=== PATIENT | female | born 1990 | race Two or more races ===

== ENCOUNTER 2023-04-28 13:07 | Emergency (ER) | payer MEDICAID, OTHER ==
[~2023-04-28] VITALS: Ht 157.5 cm; Wt 103.5 kg
[2023-04-28 13:39] LABS: Basophils # (auto) 0.1 10 ^3/uL (0-0.2); Basophils % (auto) 0.8 % (0.0-2.0); Eosinophils # (auto) 0 10 ^3/uL (0-0.8); Eosinophils % (auto) 0.6 % (0.0-7.0); Hematocrit 39.3 % (36.0-46.0); Lymphocytes # (auto) 2.7 10 ^3/uL (0.4-5.4); Lymphocytes % (auto) 32.3 % (10.0-50.0); Mean Corpuscular Volume 87.8 fL (80.0-100.0); Monocytes # (auto) 0.8 10 ^3/uL (0-1.3); Monocytes % (auto) 9.2 % (0.0-12.0); Neutrophils # (auto) 4.8 10 ^3/uL (1.6-8.6); Neutrophils % (auto) 57.1 % (37.0-80.0); Red Blood Cells 4.47 10^6/uL (4.0-5.20); Red Cell Distribution Width 13.9 % (11.8-14.3); White Blood Cell 8.4 10^3/uL (4.4-10.8)
[2023-04-28 16:26] VITALS: BP 123/63; PULSE 74; RESP 19; TEMP 98.2; O2SAT 100
== END 2023-04-28 16:27 | disposition home or self-care (01) ==
LOC: ER 13:07
DX: O20.0 Threatened abortion (principal); R10.2 Pelvic and perineal pain; Z3A.00 Weeks of gestation of pregnancy not specified
CPT/HCPCS: 36415; 76801; 76817; 84702; 85025; 86900; 86901

== ENCOUNTER 2023-10-16 14:59 | Emergency (ER) | payer MEDICAID ==
[~2023-10-16] VITALS: Ht 160 cm; Wt 96.0 kg
[2023-10-16 15:10] VITALS: BP 118/59; PULSE 95; RESP 16; O2SAT 97
[2023-10-16] MEDS ORDERED: MECLIZINE HCL 25 MG TAB PO ONE (15:45)
[2023-10-16] MEDS ORDERED: SODIUM CHLORIDE 0.9% 1,000 ML IV ONE (15:45)
[2023-10-16 16:11] LABS: Urine Bacteria None Seen /hpf (None Seen)
[2023-10-16 16:16] LABS: Chloride 106 mmol/L (98-107); Potassium 3.9 mmol/L (3.5-5.1); Sodium 134 mmol/L (136-145)
[2023-10-16 16:17] LABS: Anion Gap 6 (5-15); Calcium 9.7 mg/dL (8.7-10.4); Carbon Dioxide 22 mmol/L (20-30)
[2023-10-16 16:22] LABS: BUN/Creatinine Ratio 8.7 (10.0-20.0); Blood Urea Nitrogen 6 mg/dL (9-23); Glucose 105 mg/dL (74-106)
[2023-10-16 16:28] LABS: Basophils # (auto) 0 10 ^3/uL (0-0.2); Basophils % (auto) 0.2 % (0.0-2.0); Eosinophils # (auto) 0 10 ^3/uL (0-0.8); Eosinophils % (auto) 0.4 % (0.0-7.0); Hematocrit 37.5 % (36.0-46.0); Hemoglobin 13.1 g/dL (12.2-16.2); Lymphocytes # (auto) 2.3 10 ^3/uL (0.4-5.4); Lymphocytes % (auto) 22.3 % (10.0-50.0); Mean Corpuscular Hemoglobin 30.4 pg (28.0-32.0); Mean Corpuscular Hgb Conc. 34.9 g/dL (32.0-36.0); Mean Corpuscular Volume 87.2 fL (80.0-100.0); Monocytes # (auto) 0.6 10 ^3/uL (0-1.3); Monocytes % (auto) 5.6 % (0.0-12.0); Neutrophils # (auto) 7.5 10 ^3/uL (1.6-8.6); Neutrophils % (auto) 71.5 % (37.0-80.0); Platelet Count (auto) 323 10^3/uL (140-450); Red Cell Distribution Width 14.2 % (11.8-14.3); White Blood Cell 10.4 10^3/uL (4.4-10.8)
[2023-10-16 16:39] LABS: Urine Blood Negative /uL (Negative); Urine Clarity Clear (Clear); Urine Color Light-Yellow (Yellow); Urine Protein, UAD Negative (Negative); Urine Specific Gravity 1.015 (1.001-1.035); Urine Urobilinogen Normal (Negative); Urine WBC 3 /hpf (0 - 5)
== END 2023-10-16 18:27 | disposition left against medical advice (07) ==
LOC: ER 14:59
DX: O26.892 Other specified pregnancy related conditions, second trimester (principal); R10.2 Pelvic and perineal pain; E86.0 Dehydration; R42 Dizziness and giddiness; Z3A.18 18 weeks gestation of pregnancy
CPT/HCPCS: 36415; 80048; 81001; 82962; 83735; 84702; 85025

== ENCOUNTER 2023-10-31 14:50 | Observation (INO) | payer MEDICAID ==
[~2023-10-31] VITALS: Ht 160 cm; Wt 97.1 kg
== END 2023-10-31 16:27 | disposition home or self-care (01) ==
LOC: LDRP 14:50 → UNDOADMOB 14:50 → LDRP 14:59 → UNDODISOB 16:27
PROVIDERS: ADMIT Obstetrics & Gynecology; ATTEND Obstetrics & Gynecology
DX: O99.342 Other mental disorders complicating pregnancy, second trimester (principal); F41.9 Anxiety disorder, unspecified; F32.A Depression, unspecified; F43.10 Post-traumatic stress disorder, unspecified; Z3A.20 20 weeks gestation of pregnancy; W18.39XA Other fall on same level, initial encounter; Y93.89 Activity, other specified; Y92.89 Other specified places as the place of occurrence of the external cause; Y99.8 Other external cause status
CPT/HCPCS: 59025; 76815; 81002; 94760; G0378

== ENCOUNTER 2024-03-08 12:05 | Inpatient (IN) | payer MEDICAID ==
[2024-03-08 13:16] LABS: Urine Bacteria None Seen /hpf (None Seen)
[2024-03-08 13:20] LABS: Basophils # (auto) 0 10 ^3/uL (0-0.2); Basophils % (auto) 0.3 % (0.0-2.0); Eosinophils # (auto) 0 10 ^3/uL (0-0.8); Eosinophils % (auto) 0.3 % (0.0-7.0); Hematocrit 36.5 % (36.0-46.0); Hemoglobin 12.2 g/dL (12.2-16.2); Lymphocytes # (auto) 2.3 10 ^3/uL (0.4-5.4); Lymphocytes % (auto) 31.8 % (10.0-50.0); Mean Corpuscular Hemoglobin 30.8 pg (28.0-32.0); Mean Corpuscular Hgb Conc. 33.5 g/dL (32.0-36.0); Mean Corpuscular Volume 91.8 fL (80.0-100.0); Monocytes # (auto) 0.6 10 ^3/uL (0-1.3); Neutrophils # (auto) 4.4 10 ^3/uL (1.6-8.6); Neutrophils % (auto) 59.6 % (37.0-80.0); Platelet Count (auto) 190 10^3/uL (140-450); Red Blood Cells 3.98 10^6/uL (4.0-5.20); Red Cell Distribution Width 14.6 % (11.8-14.3); White Blood Cell 7.4 10^3/uL (4.4-10.8)
[2024-03-08 13:30] LABS: INR 0.9 (0.9-1.15); Partial Thromboplastin Time 28.5 SEC (24.5-34.5); Prothrombin Time 9.6 sec (9.3-11.8)
[2024-03-08 13:35] LABS: Albumin 3.7 g/dL (3.2-4.8); Anion Gap 6 (5-15); Aspartate Aminotransferase 15 U/L (13-40); BUN/Creatinine Ratio 12.3 (10.0-20.0); Bilirubin, Total 0.4 mg/dL (0.2-1.0); Calcium 9.2 mg/dL (8.7-10.4); Carbon Dioxide 22 mmol/L (20-31); Glucose 79 mg/dL (74-106); Total Protein 6.4 g/dL (5.7-8.2)
[2024-03-08 13:50] LABS: Benzodiazephine Screen, Urine Neg (NEGATIVE)
[2024-03-08 14:10] LABS: Amphetamine Screen, Urine Neg (NEGATIVE); Barbiturate Scree,Urine Neg (NEGATIVE); Cannabinoid Screen, Urine Neg (NEGATIVE); Cocaine Screen, Urine Neg (NEGATIVE); Opiate Scree,Urine Neg (NEGATIVE); Phencyclidine Screen, Urine Neg (NEGATIVE)
[2024-03-08 14:12] LABS: Blood Urea Nitrogen 8 mg/dL (9-23); Chloride 107 mmol/L (98-107); Sodium 135 mmol/L (136-145)
[2024-03-08 14:13] LABS: Alanine Aminotransferase < 9 U/L (7-40); Alkaline Phosphatase 141 U/L (46-116)
[2024-03-08 14:14] LABS: Urine Blood Negative /uL (Negative); Urine Clarity Clear (Clear); Urine Color Light-Yellow (Yellow); Urine Mucus FEW (None Seen); Urine Protein, UAD Negative (Negative); Urine Squamous Epithelial Cell FEW /hpf (<5); Urine Urobilinogen Normal (Negative); Urine WBC 2 /hpf (0 - 5); Urine pH 6.5 (5.0-9.0)
--- NOTE | 2024-03-08 18:38 | DVHDS2 ---
Physician Discharge Progress N Final Diagnosis: PREOP Operations or Procedures: Operations or Procedures NST,SONO Condition on Discharge: Good Disposition: Home Discharge Instructions: Diet: Consistent carbohydrate Activity: No Restrictions, As Tolerated Medications: NA Follow Up Care: Specialist: 3D Discharge Statement: "Patient was advised to return to the ER or call 911 if any headaches, dizziness, shortness of breath, chest pain, abdominal pain, bleeding, fevers, or worsening of medical condition. Patient was counseled about treatment plan, medications, possible side effects, patientverbalized understanding. All questions were answered to the best of my ability. This discharge took greater then 30 minutes in planning, reviewing documentation, counseling the patient, and discussing with other team members." SB JUNIOR DO Mar 08, 2024 18:38
[2024-03-10] MEDS ORDERED: LACTATED RINGER'S 1,000 ML IV SCH (07:30)
[2024-03-10] MEDS ORDERED: LACTATED RINGER'S 1,000 ML IV ONE (07:30)
[2024-03-10] MEDS ORDERED: ceFAZolin 2 GM/D5W50ml 50 ML IV ONE (07:30)
--- NOTE | 2024-03-10 09:15 | DVH ---
LIMITED OB ULTRASOUND > 14 WKS: HISTORY: Presentation TECHNIQUE: Multiple real-time grayscale images of the gravid uterus with duplex Doppler color flow an d M-mode spectral analysis. TRANSDUCER: Transabdominal FINDINGS/IMPRESSION: heart rate 127 beats per minute Cephalic Presentation
--- NOTE | 2024-03-10 12:25 | DVHDS2 ---
Physician Discharge Progress N Final Diagnosis: Cephalic presentation, primary section cancelled. Secondary Diagnosis: Encounter for surveillance Operations or Procedures: Operations or Procedures NST Limited OB US Commentary: Commentary Baby no longer breech at 39 wk, C/S cancelled NOT in labor Condition on Discharge: Stable Disposition: Home Discharge Instructions: Diet: Regular Activity: No Restrictions, As Tolerated Follow Up/Referral: N/A Medications: NA Follow Up Care: Discharge Statement: "Patient was advised to return to the ER or call 911 if any headaches, dizziness, shortness of breath, chest pain, abdominal pain, bleeding, fevers, or worsening of medical condition. Patient was counseled about treatment plan, medications, possible side effects, patientverbalized understanding. All questions were answered to the best of my ability. This discharge took greater then 30 minutes in planning, reviewing documentation, counseling the patient, and discussing with other team members." CEM DAWSON DO Mar 10, 2024 12:25
[2024-03-11 04:06] LABS: RPR Non Reactive (Non Reactive)
[2024-03-11 12:06] LABS: Treponema Pallidum Ab LC Non Reactive (Non Reactive)
== END 2024-03-10 09:16 | disposition home or self-care (01) | DRG 566 ==
LOC: LDRP 12:05 → UNDOADMOB 12:05 → EDSTATUS 16:20 → LDRP 03-10 07:15
PROVIDERS: ADMIT Obstetrics & Gynecology; ATTEND Obstetrics & Gynecology
DX: O26.893 Other specified pregnancy related conditions, third trimester (principal); Z3A.39 39 weeks gestation of pregnancy; Z79.899 Other long term (current) drug therapy
CPT/HCPCS: 36415; 59025; 76815; 80053; 80307; 81001; 81002; 85025; 85610; 85730; 86592; 86780; 86803; 86850; 86900; 86901; 94760; G0378

== ENCOUNTER 2024-03-14 09:45 | Inpatient (IN) | payer MEDICAID ==
[~2024-03-14] VITALS: Ht 165.1 cm; Wt 112.0 kg
--- NOTE | 2024-03-14 11:34 | DVH ---
LIMITED OB ULTRASOUND > 14 WKS: HISTORY: presentation. TECHNIQUE: Multiple real-time grayscale images of the gravid uterus with duplex Doppler color flow an d M-mode spectral analysis. COMPARISON: US OBSTERICAL LIMITED on DOS: 03/10/24, US OBSTERICAL LIMITED on DOS: 10/31/23 FINDINGS: IUP single live fetus in cephalic presentation. heart rate measures 126 beats per minute. PRESLEY m easures 16.1 cm. Placenta is posterior. IMPRESSION: IUP single live fetus cephalic presentation.
[2024-03-14 11:45] LABS: Fern Testing Negative
[2024-03-14] MEDS ORDERED: BUTORPHANOL TARTRATE 2 MG/1 ML VIAL IV PRN ×2 (11:45)
[2024-03-14] MEDS ORDERED: LIDOCAINE 2%HCL (LOCAL ANESTH.) INJ 20ML MDV IJ PRN (11:45)
[2024-03-14] MEDS ORDERED: LACT. RINGERS/OXYTOCIN 20UNITS 1,000 ML IV SCH (11:45)
--- NOTE | 2024-03-14 12:25 | DVHHP2 ---
OB CC & HPI Date Date of Admission: Mar 14, 2024 Patient Identification: : 3 Para: 1 EGA: 40.1 Chief Complaints: Reason for admission: induction of labor History of Present Complaints 33y IUP 40+ wk, presented w/ complaints of early labor. Cx 3cm dilated, irreg contractions. Membranes intact GBS positive. Desires induction of labor Past Medical History Cardiac: No pertinent Hx Pulmonary: No pertinent Hx Central Nervous System: No pertinent Hx GI: No pertinent Hx Hemotology/Oncology: No pertinent Hx Hepatobiliary: No pertinent Hx Psychiatric: No pertinent Hx Musculoskeletal: No pertinent Hx Rheumotologic: No pertinent Hx Infectious Disease: No peritnent Hx ENT: No pertinent Hx Renal/: No pertinent Hx Endocrine: No pertinent Hx Dermatology: No pertinent Hx Past Surgical History: No pertinent Hx OB History OB History Care: Good Care Ultrasounds: Normal mid trimester US Obstetrical Complications: None Medical Complications: None Allergies: Coded Allergies: NO KNOWN ALLERGIES (Unverified , 04/28/23) Home Meds No Active Prescriptions or Reported Meds Current Medications Current Medications Medications (Trade) Dose Ordered Sig/Jose Route PRN Reason Start Time Stop Time Status Last Admin Lactated Ringer's 1,000 ml @ 125 mls/hr Q8H IV 03/14/24 11:45 UNV Penicillin G Potassium [id number] units/Dextrose 50 ml @ 100 mls/hr Q4H IV 03/14/24 15:45 UNV Witch Chhaya (Tucks) 1 pad PRN PRN TOP PERINEAL AREA DISCOMFORT 03/14/24 11:45 UNV Sodium Lauryl Sulfate (Phisoderm) 240 ml PRN PRN TOP PERINEAL AREA DISCOMFORT 03/14/24 11:45 UNV Benzocaine (Dermoplast) 1 applic PRN PRN TOP PERINEAL AREA DISCOMFORT 03/14/24 11:45 UNV Butorphanol Tartrate (Stadol Injection) 1 mg Q4HPRN PRN IV MODERATE PAIN (4-6 PAIN SCALE) 03/14/24 11:45 UNV Butorphanol Tartrate (Stadol Injection) 2 mg Q4HPRN PRN IV SEVERE PAIN (7-10 PAIN SCALE) 03/14/24 11:45 UNV Lidocaine HCl (Xylocaine) 20 ml ONCE PRN IJ PERINEAL AREA DISCOMFORT 03/14/24 11:45 UNV Oxytocin 1,000 ml @ 6 ml/hr Q24H IV 03/14/24 11:45 UNV Family & Social History Family/Social History Rubella: immune RPR/VDRL: Negative GBS Status: Positive HBsAG: Negative Review of Systems Constitutional: No symptom reported Ears, Nose, & Throat: No symptom reported Eyes: No symptom reported Pulmonary/Respiratory: No symptom reported Cardiovascular: No symptom reported Gastrointestinal: No symptom reported Genitourinary: No symptom reported Musculoskeletal: No symptom reported Skin: No symptom reported Psychiatric: No symptom reported Endocrine: No symptom reported Hemotologic/Lymphatic: No symptom reported OB Admission Exam Physical Exam HEENT: NCAT Heart: Rhythm Normal Lungs: Clear Abdomen: Gravid Extremities: Normal Reflexes: Normal Pelvic Exam: RN exam 3/70/-3 VTX Membranes: Intact Heart Rate: 130's Care Home Variability: Average (6-25) Contractions on Admission: >10 Minutes Apart Intensity: Mild OB Plan Plan Admitting Diagnosis: Term IUP 40.1 wk, Early labor GBS Positive Plan: Expectant Management Other Plan: Admit for labor and delivery Pitocin augmentation Pen G For GBS prophylaxis Informed consent obtained for treatment CEM DAWSON DO Mar 14, 2024 12:25
[2024-03-14 12:35] LABS: Urine Bacteria None Seen /hpf (None Seen)
[2024-03-14 12:49] LABS: Basophils # (auto) 0 10 ^3/uL (0-0.2); Basophils % (auto) 0.2 % (0.0-2.0); Eosinophils # (auto) 0 10 ^3/uL (0-0.8); Eosinophils % (auto) 0.1 % (0.0-7.0); Hemoglobin 12.7 g/dL (12.2-16.2); Lymphocytes # (auto) 2.4 10 ^3/uL (0.4-5.4); Mean Corpuscular Hemoglobin 31.4 pg (28.0-32.0); Mean Corpuscular Hgb Conc. 34.4 g/dL (32.0-36.0); Monocytes # (auto) 0.6 10 ^3/uL (0-1.3); Monocytes % (auto) 6.2 % (0.0-12.0); Neutrophils # (auto) 6.8 10 ^3/uL (1.6-8.6); Neutrophils % (auto) 69.5 % (37.0-80.0); Nucleated Red Blood Cells % 0.1 %; Platelet Count (auto) 182 10^3/uL (140-450); Red Blood Cells 4.06 10^6/uL (4.0-5.20); Red Cell Distribution Width 14.3 % (11.8-14.3); White Blood Cell 9.8 10^3/uL (4.4-10.8)
[2024-03-14 12:53] LABS: Urine Blood Negative /uL (Negative); Urine Clarity Clear (Clear); Urine Color Light-Yellow (Yellow); Urine Protein, UAD Negative (Negative); Urine Specific Gravity 1.007 (1.001-1.035); Urine Squamous Epithelial Cell FEW /hpf (<5); Urine Urobilinogen Normal (Negative); Urine WBC 1 /HPF (0-5); Urine pH 6.5 (5.0-9.0)
[2024-03-14 12:55] LABS: Benzodiazephine Screen, Urine Neg (NEGATIVE)
[2024-03-14 12:56] LABS: Amphetamine Screen, Urine Neg (NEGATIVE); Barbiturate Scree,Urine Neg (NEGATIVE); Cannabinoid Screen, Urine Neg (NEGATIVE); Cocaine Screen, Urine Neg (NEGATIVE); Opiate Scree,Urine Neg (NEGATIVE); Phencyclidine Screen, Urine Neg (NEGATIVE)
[2024-03-14 12:59] LABS: Alanine Aminotransferase 13 U/L (7-40); Albumin 3.9 g/dL (3.2-4.8); Anion Gap 6 (5-15); Aspartate Aminotransferase 22 U/L (13-40); BUN/Creatinine Ratio 13.9 (10.0-20.0); Bilirubin, Total 0.3 mg/dL (0.2-1.0); Blood Urea Nitrogen 11 mg/dL (9-23); Calcium 9.3 mg/dL (8.7-10.4); Carbon Dioxide 22 mmol/L (20-31); Chloride 106 mmol/L (98-107); Glucose 104 mg/dL (74-106); Potassium 3.8 mmol/L (3.5-5.1)
[2024-03-14 13:00] LABS: Total Protein 6.6 g/dL (5.7-8.2)
[2024-03-14 13:03] LABS: Alkaline Phosphatase 165 U/L (46-116); Sodium 134 mmol/L (136-145)
[2024-03-14 13:13] LABS: INR 0.9 (0.9-1.15); Partial Thromboplastin Time 28.8 SEC (24.5-34.5); Prothrombin Time 9.6 sec (9.3-11.8)
[2024-03-14] MEDS: DERMOPLAST 60ML BOTTLE TOP PRN (15:08)
[2024-03-14] MEDS: PHISODERM TOP SOLN 240ML BTL TOP PRN (15:08)
[2024-03-14] MEDS: WITCH HAZEL-GLYCERIN PAD TOP PRN (15:08)
[2024-03-14] MEDS: PENICILLIN G POT 5MIL/D5 50ML 50 ML IV ONE (15:08)
[2024-03-14] MEDS ORDERED: PENICILLIN G POTASSIUM 2,500,000 UNITS in D5W 5% 50 ML IV SCH (15:45)
[2024-03-14] MEDS ORDERED: ePHEDrine SULFATE 50 MG/ML AMP IV ONE ×2 (16:45→21:45)
[2024-03-14] MEDS ORDERED: NALOXONE HCL 0.4 MG/ML VIAL IV ONE ×2 (16:45→21:45)
--- NOTE | 2024-03-14 18:10 | DVHPN2 ---
OB Labor Progress Note Date and Time Seen Date Seen: Mar 14, 2024 Time Seen: 17:10 Subjective Patient reports: No new complaints Monitoring Method Monitoring Method: Internal Heart Rate Heart Rate Baseline: 120 Heart Rate Variability: Moderate Presence of FHR Accelerations: Yes Presence of FHR Decelerations: Yes Heart Rate Type of Decel: Variable Decelerations (Intermittent, mild) Contractions Contractions Frequency: Other (3-4/10) Contractions Intensity: Moderate Contractions Resting Tone: Relaxed Membranes Membranes: Ruptured Amniotic Fluid Color: [employer] Meconium Vaginal Exam Vaginal Exam Dilation: 4 Vaginal Exam Effacement: 60 Vaginal Exam Station: -3 Vaginal Exam Presentation: VTX Vaginal Exam Show: Small Medications Medications - Pitocin: No Medication - Epidural: No Lab Results Lab Results Current Medications Medications (Trade) Dose Ordered Sig/Jose Start Time Stop Time Status Last Admin Dose Admin Lactated Ringer's 1,000 ml @ 125 mls/hr Q8H 03/14/24 11:45 Penicillin G Potassium 50 ml @ 100 mls/hr ONCE ONCE 03/14/24 11:45 03/14/24 13:26 DC 03/14/24 15:08 100 MLS/HR Penicillin G Potassium [id number] units/Dextrose 50 ml @ 100 mls/hr Q4H 03/14/24 15:45 Witch Chhaya (Tucks) 1 pad PRN PRN 03/14/24 11:45 03/14/24 15:08 1 PAD Sodium Lauryl Sulfate (Phisoderm) 240 ml PRN PRN 03/14/24 11:45 03/14/24 15:08 240 ML Benzocaine (Dermoplast) 1 applic PRN PRN 03/14/24 11:45 03/14/24 15:08 1 APPLIC Butorphanol Tartrate (Stadol Injection) 1 mg Q4HPRN PRN 03/14/24 11:45 Butorphanol Tartrate (Stadol Injection) 2 mg Q4HPRN PRN 03/14/24 11:45 Lidocaine HCl (Xylocaine) 20 ml ONCE PRN 03/14/24 11:45 Oxytocin 1,000 ml @ 6 ml/hr Q24H 03/14/24 11:45 Oxytocin 500 ml @ 999 mls/hr Q31M ONCE 03/14/24 11:45 03/14/24 13:26 DC Oxytocin 500 ml @ 125 mls/hr Q4H ONCE 03/14/24 12:15 03/14/24 16:14 DC Naloxone HCl (Narcan) 0.2 mg PRN ONCE 03/14/24 16:45 03/14/24 16:50 DC Ephedrine Sulfate (ePHEDrine SULFATE) 10 mg PRN ONCE 03/14/24 16:45 03/14/24 16:50 DC Laboratory Tests Test 03/14/24 12:05 03/14/24 11:40 03/14/24 10:30 Range/Units White Blood Count 9.8 # 4.4-10.8 10^3/uL Red Blood Count 4.06 4.0-5.20 10^6/uL Hemoglobin 12.7 12.2-16.2 g/dL Hematocrit 37.0 36.0-46.0 % Mean Corpuscular Volume 91.0 80.0-100.0 fL Mean Corpuscular Hemoglobin 31.4 28.0-32.0 pg Mean Corpuscular Hemoglobin Concent 34.4 32.0-36.0 g/dL Red Cell Distribution Width 14.3 11.8-14.3 % Platelet Count 182 140-450 10^3/uL Mean Platelet Volume 9.2 6.9-10.8 fL Neutrophils (%) (Auto) 69.5 37.0-80.0 % Lymphocytes (%) (Auto) 24.0 10.0-50.0 % Monocytes (%) (Auto) 6.2 0.0-12.0 % Eosinophils (%) (Auto) 0.1 0.0-7.0 % Basophils (%) (Auto) 0.2 0.0-2.0 % Neutrophils # (Auto) 6.8 1.6-8.6 10 ^3/uL Lymphocytes # (Auto) 2.4 0.4-5.4 10 ^3/uL Monocytes # (Auto) 0.6 0-1.3 10 ^3/uL Eosinophils # (Auto) 0 0-0.8 10 ^3/uL Basophils # (Auto) 0 0-0.2 10 ^3/uL Nucleated Red Blood Cells 0.1 % Prothrombin Time 9.6 9.3-11.8 sec Prothrombin Time INR 0.90 0.9-1.15 Activated Partial Thromboplast Time 28.8 24.5-34.5 SEC Sodium Level 134 L 136-145 mmol/L Potassium Level 3.8 3.5-5.1 mmol/L Chloride Level 106 98-107 mmol/L Carbon Dioxide Level 22 20-31 mmol/L Anion Gap 6 5-15 Blood Urea Nitrogen 11 9-23 mg/dL Creatinine 0.79 0.550-1.02 mg/dL Glomerular Filtration Rate Calc 101 >90 mL/min BUN/Creatinine Ratio 13.9 10.0-20.0 Serum Glucose 104 74-106 mg/dL Calcium Level 9.3 8.7-10.4 mg/dL Total Bilirubin 0.3 0.2-1.0 mg/dL Aspartate Amino Transferase (AST) 22 13-40 U/L Alanine Aminotransferase (ALT) 13 7-40 U/L Alkaline Phosphatase 165 H 46-116 U/L Total Protein 6.6 5.7-8.2 g/dL Albumin 3.9 3.2-4.8 g/dL Urine Color Light-yellow Yellow Urine Clarity Clear Clear Urine pH 6.5 5.0-9.0 Urine Specific [place] 1.007 1.001-1.035 Urine Protein Negative Negative Urine Ketones Negative Negative Urine Blood Negative Negative /uL Urine Nitrite Negative Negative Urine Bilirubin Negative Negative Urine Urobilinogen Normal Negative mg/dL Urine Leukocyte Esterase Negative Negative /uL Urine RBC 4 0 - 4 /hpf Urine Microscopic WBC 1 0-5 /HPF Urine Squamous Epithelial Cells Few <5 /hpf Urine Bacteria None seen None Seen /hpf Urine Glucose Normal Normal mg/dL Urine Opiates Screen Neg NEGATIVE Urine Fentanyl Screen Neg NEGATIVE Urine Barbiturates Screen Neg NEGATIVE Urine Phencyclidine Screen Neg NEGATIVE Urine Amphetamines Screen Neg NEGATIVE Urine Benzodiazepines Screen Neg NEGATIVE Urine Cocaine Screen Neg NEGATIVE Urine Cannabinoids Screen Neg NEGATIVE Amniotic Fluid Ferning Test Negative Placental [id number] Negative Assessment Assessment Term IUP 40.1 wk, early labor GBS+ s/p Amniotomy Plan Plan continue labor mgmt IUPC/FSE placed Pitocin augmentation ordered as needed to attain adequate labor >= 200 MVU\ Epidural discussed, pt will consider. Plan discussed with: Patient CEM DAWSON Mar 14, 2024 18:10
[2024-03-14] MEDS: ROPIVACAINE HCL 200 ML ONE ×2 (19:21→22:04)
[2024-03-14] MEDS ORDERED: ONDANSETRON HCL 4 MG/2 ML VIAL IV PRN (19:45)
[2024-03-14] MEDS: PENICILLIN G POTASSIUM 2,500,000 UNITS in D5W 5% 50 ML IV SCH (20:15)
[2024-03-14] MEDS: LACTATED RINGER'S 1,000 ML IV SCH (20:31)
[2024-03-14] MEDS ORDERED: fentaNYL CITRATE 100 MCG/2 ML VL IV ONE (21:45)
--- NOTE | 2024-03-14 23:08 | LDN2 ---
Labor and Delivery Note Date 03/14/24 Age 33 3 Para 2 AB 1 EGA 40.1 Diagnosis Term , delivered Vaginal Delivery: VTX Vacuum Assisted: No Placenta: Spontaneous Sex: Male Weight 1yo45ts Apgars 8/9 Amniotic Fluid: Meconium Stained, Thin Anesthesia Epidural Episiotomy: No Repaired with 2nd degree perineal lac repaired 3/0 Chromic EBL 150 mL Labs Blood Bank 03/14/24 12:05: Blood Type A POSITIVE Complications None CEM DAWSON DO Mar 14, 2024 23:08
[2024-03-15] MEDS: METHYLERGONOVINE MALEATE 0.2 MG/ML AMP IM ONE ×2 (00:17→00:30)
[2024-03-15] MEDS: LACT. RINGERS/OXYTOCIN 20UNITS 500 ML IV ONE ×2 (00:20→00:21)
[2024-03-15 00:47] LABS: Basophils # (auto) 0 10 ^3/uL (0-0.2); Basophils % (auto) 0.1 % (0.0-2.0); Eosinophils # (auto) 0 10 ^3/uL (0-0.8); Hematocrit 33.9 % (36.0-46.0); Hemoglobin 11.2 g/dL (12.2-16.2); Lymphocytes # (auto) 1.1 10 ^3/uL (0.4-5.4); Mean Corpuscular Hemoglobin 30.8 pg (28.0-32.0); Mean Corpuscular Hgb Conc. 33.1 g/dL (32.0-36.0); Mean Corpuscular Volume 93.2 fL (80.0-100.0); Monocytes # (auto) 1.1 10 ^3/uL (0-1.3); Monocytes % (auto) 5.3 % (0.0-12.0); Neutrophils % (auto) 89.6 % (37.0-80.0); Platelet Count (auto) 188 10^3/uL (140-450); Red Blood Cells 3.64 10^6/uL (4.0-5.20); Red Cell Distribution Width 14.7 % (11.8-14.3); White Blood Cell 21.3 10^3/uL (4.4-10.8)
[2024-03-15 03:00] VITALS: BP 107/58; PULSE 81; RESP 18; TEMP 98.1; O2SAT 97
[2024-03-15] MEDS: ONDANSETRON HCL 4 MG/2 ML VIAL ONE (03:28)
[2024-03-15] MEDS: LACTATED RINGER'S 1,000 ML IV ONE (03:29)
--- NOTE | 2024-03-15 05:11 | DVHPN2 ---
Progress Note Date Seen: Mar 15, 2024 Subjective PPD#1 s/p at Term 40+ wk Doing well. Lochia moderate, had large blood clots an hour after delivery relieved with uterine massage and IV Pitocin Denies SOB/Chest pain or dizziness vital signs Vital Sign Date Time Temp Pulse Resp B/P (MAP) Pulse Ox O2 Delivery O2 Flow Rate FiO2 03/15/24 03:00 98.1 81 18 107/58 (74) 97 98.1 medications Current Medications Medications Dose Ordered Sig/Jose Route Start Time Stop Time Status Last Admin Dose Admin Lactated Ringer's 1,000 ml @ 125 mls/hr Q8H IV 03/14/24 11:45 03/15/24 03:30 125 MLS/HR Witch Chhaya 1 pad PRN PRN TOP 03/14/24 11:45 03/14/24 15:08 1 PAD Sodium Lauryl Sulfate 240 ml PRN PRN TOP 03/14/24 11:45 03/14/24 15:08 240 ML Benzocaine 1 applic PRN PRN TOP 03/14/24 11:45 03/14/24 15:08 1 APPLIC Butorphanol Tartrate 1 mg Q4HPRN PRN IV 03/14/24 11:45 Cancel Butorphanol Tartrate 2 mg Q4HPRN PRN IV 03/14/24 11:45 Cancel Lidocaine HCl 20 ml ONCE PRN IJ 03/14/24 11:45 Cancel Oxytocin 1,000 ml @ 6 ml/hr Q24H IV 03/14/24 11:45 Cancel Ondansetron HCl 4 mg Q6HPRN PRN IV 03/14/24 19:45 laboratory and microbiology Laboratory Tests 03/15/24 00:32 03/14/24 12:05 Test 03/14/24 12:05 Range/Units Serum Glucose 104 74-106 mg/dL Objective O: AFVSS Chest: heart and lung sounds normal. Abd soft, non-tender, fundus firm, BS, no rebound or guarding, Ext Neg Homans, Non-tender, edema Lochia - minimal Labs Reviewed, leukocytosis WBC increased 21K Assessment/Plan PPD#1 s/p PPH, resolved Leukocytosis Plan: Observation, supportive care No evidence of endometritis or fever despite leukocytosis, likely physiologic increase in WBC - Repeat CBC before discharge Plan discussed with: Patient SAMIRCEM Mar 15, 2024 05:11
[2024-03-15 05:32] LABS: Basophils # (auto) 0 10 ^3/uL (0-0.2); Basophils % (auto) 0.1 % (0.0-2.0); Eosinophils # (auto) 0 10 ^3/uL (0-0.8); Hematocrit 29.1 % (36.0-46.0); Hemoglobin 9.8 g/dL (12.2-16.2); Lymphocytes # (auto) 1.5 10 ^3/uL (0.4-5.4); Lymphocytes % (auto) 7.8 % (10.0-50.0); Mean Corpuscular Hemoglobin 30.8 pg (28.0-32.0); Mean Corpuscular Hgb Conc. 33.8 g/dL (32.0-36.0); Mean Corpuscular Volume 91.2 fL (80.0-100.0); Monocytes # (auto) 1.1 10 ^3/uL (0-1.3); Monocytes % (auto) 5.5 % (0.0-12.0); Neutrophils # (auto) 16.6 10 ^3/uL (1.6-8.6); Neutrophils % (auto) 86.6 % (37.0-80.0); Platelet Count (auto) 163 10^3/uL (140-450); Red Blood Cells 3.19 10^6/uL (4.0-5.20); Red Cell Distribution Width 14.4 % (11.8-14.3); White Blood Cell 19.2 10^3/uL (4.4-10.8)
[2024-03-15 07:17] VITALS: BP 106/55; PULSE 77; RESP 18; TEMP 98.1; O2SAT 95
[2024-03-15] MEDS ORDERED: ONDANSETRON ODT 4 MG TAB PO PRN (07:30)
--- NOTE | 2024-03-15 09:52 | DVHINCON2 ---
Date of service: Mar 15, [address] Flip Meza Reason for Consultation Medication management and disposition. History of Present Illness Chief complaint: "I had a baby". History of present illness: This is a 33 year female who was seen for evaluation via telepsychiatry. Patient reported that she has been feeling depressed stating sometimes, I am on Zoloft". She reported that she had some trouble sleeping because of her her being . She reported that her energy level low, has trouble concentrating and her appetite is good. She denied feeling hopeless or worthless. She denied suicidal or homicidal ideation. She denied any thoughts of hurting her child. She denied any auditory or visual hallucination. She denied any paranoia. She reported feeling anxious sometimes. Past psychiatric history: Patient denied any inpatient psychiatric hospitalization. Patient reported that she has been treated for depression with Zoloft. Patient denied any suicide attempts but used indulged in self-injurious behavior. She reported that she has been treated for depression during her 1st . Past Medical History As per history and physical. Past Surgical History As per history and physical. Family History She denied any family history of any psychiatric illness. Social History Patient is and has two children. Patient is a homemaker. Patient is living with her family. Substance use: Denied Allergies: Coded Allergies: NO KNOWN ALLERGIES (Unverified , 04/28/23) Home Meds No Active Prescriptions or Reported Meds Current Medications Current Medications Medications (Trade) Dose Ordered Sig/Joes Route PRN Reason Start Time Stop Time Status Last Admin Lactated Ringer's 1,000 ml @ 125 mls/hr Q8H IV 03/14/24 11:45 03/15/24 03:30 Penicillin G Potassium [id number] units/Dextrose 50 ml @ 100 mls/hr Q4H IV 03/14/24 15:45 03/14/24 19:10 DC Witch Chhaya (Tucks) 1 pad PRN PRN TOP PERINEAL AREA DISCOMFORT 03/14/24 11:45 03/14/24 15:08 Sodium Lauryl Sulfate (Phisoderm) 240 ml PRN PRN TOP PERINEAL AREA DISCOMFORT 03/14/24 11:45 03/14/24 15:08 Benzocaine (Dermoplast) 1 applic PRN PRN TOP PERINEAL AREA DISCOMFORT 03/14/24 11:45 03/14/24 15:08 Butorphanol Tartrate (Stadol Injection) 1 mg Q4HPRN PRN IV MODERATE PAIN (4-6 PAIN SCALE) 03/14/24 11:45 Cancel Butorphanol Tartrate (Stadol Injection) 2 mg Q4HPRN PRN IV SEVERE PAIN (7-10 PAIN SCALE) 03/14/24 11:45 Cancel Lidocaine HCl (Xylocaine) 20 ml ONCE PRN IJ PERINEAL AREA DISCOMFORT 03/14/24 11:45 Cancel Oxytocin 1,000 ml @ 6 ml/hr Q24H IV 03/14/24 11:45 Cancel Penicillin G Potassium [id number] units/Dextrose 50 ml @ 100 mls/hr Q4H IV 03/14/24 23:00 03/15/24 00:25 DC 03/14/24 20:15 Ondansetron HCl (Zofran) 4 mg Q6HPRN PRN IV NAUSEA / VOMITING 03/14/24 19:45 Ibuprofen (Motrin Tablet) 600 mg Q6HP PRN PO MODERATE PAIN (4-6 PAIN SCALE) 03/15/24 07:30 Acetaminophen (Tylenol Tablet) 650 mg Q4HP PRN PO MILD PAIN (1-3 PAIN SCALE) 03/15/24 07:30 Ondansetron HCl (Zofran Po) 4 mg Q4HPRN PRN PO NAUSEA / VOMITING 03/15/24 07:30 Review of Systems Review of systems is negative except HPI. Vital Signs Vital Signs Date Time Temp Pulse Resp B/P (MAP) Pulse Ox O2 Delivery O2 Flow Rate FiO2 03/15/24 07:17 98.1 77 18 106/55 (72) 95 98.1 03/15/24 07:00 Room Air Physical Exam Mental status examination: This is a 33 year female who appears to be of her stated age. Her grooming is fair. Her eye contact is good. Her speech is regular in rate and rhythm. She describes mood as "it is good" and her affect is congruent full. She denied any suicidal or homicidal ideation. She denied any auditory or visual hallucination. Her thought process is linear and goal- directed. She is oriented to time, place and person. Her attention and concentration is intact. Her memory and language intact. Her judgment and insight is fair. Her impulse control is fair. Her fund of knowledge is intact. Labs/Diagnostic Data Labs Test 03/15/24 04:38 03/14/24 12:05 03/14/24 11:40 03/14/24 10:30 Range/Units White Blood Count 19.2 H 4.4-10.8 10^3/uL Red Blood Count 3.19 L 4.0-5.20 10^6/uL Hemoglobin 9.8 L 12.2-16.2 g/dL Hematocrit 29.1 #L 36.0-46.0 % Mean Corpuscular Volume 91.2 80.0-100.0 fL Mean Corpuscular Hemoglobin 30.8 28.0-32.0 pg Mean Corpuscular Hemoglobin Concent 33.8 32.0-36.0 g/dL Red Cell Distribution Width 14.4 H 11.8-14.3 % Platelet Count 163 140-450 10^3/uL Mean Platelet Volume 9.0 6.9-10.8 fL Neutrophils (%) (Auto) 86.6 H 37.0-80.0 % Lymphocytes (%) (Auto) 7.8 L 10.0-50.0 % Monocytes (%) (Auto) 5.5 0.0-12.0 % Eosinophils (%) (Auto) 0.0 0.0-7.0 % Basophils (%) (Auto) 0.1 0.0-2.0 % Neutrophils # (Auto) 16.6 H 1.6-8.6 10 ^3/uL Lymphocytes # (Auto) 1.5 0.4-5.4 10 ^3/uL Monocytes # (Auto) 1.1 0-1.3 10 ^3/uL Eosinophils # (Auto) 0 0-0.8 10 ^3/uL Basophils # (Auto) 0 0-0.2 10 ^3/uL Nucleated Red Blood Cells 0.0 % Prothrombin Time 9.6 9.3-11.8 sec Prothrombin Time INR 0.90 0.9-1.15 Activated Partial Thromboplast Time 28.8 24.5-34.5 SEC Sodium Level 134 L 136-145 mmol/L Potassium Level 3.8 3.5-5.1 mmol/L Chloride Level 106 98-107 mmol/L Carbon Dioxide Level 22 20-31 mmol/L Anion Gap 6 5-15 Blood Urea Nitrogen 11 9-23 mg/dL Creatinine 0.79 0.550-1.02 mg/dL Glomerular Filtration Rate Calc 101 >90 mL/min BUN/Creatinine Ratio 13.9 10.0-20.0 Serum Glucose 104 74-106 mg/dL Calcium Level 9.3 8.7-10.4 mg/dL Total Bilirubin 0.3 0.2-1.0 mg/dL Aspartate Amino Transferase (AST) 22 13-40 U/L Alanine Aminotransferase (ALT) 13 7-40 U/L Alkaline Phosphatase 165 H 46-116 U/L Total Protein 6.6 5.7-8.2 g/dL Albumin 3.9 3.2-4.8 g/dL Urine Color Light-yellow Yellow Urine Clarity Clear Clear Urine pH 6.5 5.0-9.0 Urine Specific [place] 1.007 1.001-1.035 Urine Protein Negative Negative Urine Ketones Negative Negative Urine Blood Negative Negative /uL Urine Nitrite Negative Negative Urine Bilirubin Negative Negative Urine Urobilinogen Normal Negative mg/dL Urine Leukocyte Esterase Negative Negative /uL Urine RBC 4 0 - 4 /hpf Urine Microscopic WBC 1 0-5 /HPF Urine Squamous Epithelial Cells Few <5 /hpf Urine Bacteria None seen None Seen /hpf Urine Glucose Normal Normal mg/dL Urine Opiates Screen Neg NEGATIVE Urine Fentanyl Screen Neg NEGATIVE Urine Barbiturates Screen Neg NEGATIVE Urine Phencyclidine Screen Neg NEGATIVE Urine Amphetamines Screen Neg NEGATIVE Urine Benzodiazepines Screen Neg NEGATIVE Urine Cocaine Screen Neg NEGATIVE Urine Cannabinoids Screen Neg NEGATIVE Amniotic Fluid Ferning Test Negative Placental [id number] Negative Assessment Patient with a diagnosis of major depressive disorder recurrent moderate and history of depression. Patient has been on Zoloft and was compliant with her medication during her . Patient is aware that all the medication are secreted in breast milk and she reported that she was taking medication after delivering her 1st baby. Patient is going to see her psychiatrist on 03/17/24. Plan/Recommendation Patient may resume her home medication of Zoloft. Patient does not meet the criteria for 5150 hold and is cleared for discharge from a psychiatric standpoint. Care was coordinated with the patient and her RN. Plan discussed with: Patient DAVID STEVEN MD Mar 15, 2024 09:52
[2024-03-15 11:00] VITALS: BP 120/56; PULSE 61; RESP 16; TEMP 99.1; O2SAT 100
[2024-03-15] MEDS: IBUPROFEN 600 MG TAB PO PRN (12:05)
[2024-03-15 15:00] VITALS: BP 115/61; PULSE 75; RESP 16; TEMP 98.9; O2SAT 97
[2024-03-15] MEDS: ACETAMINOPHEN 325 MG TAB PO PRN (18:44)
[2024-03-15 19:00] VITALS: BP 133/63; PULSE 86; RESP 18; TEMP 98.3; O2SAT 97
[2024-03-15 19:22] LABS: Basophils # (auto) 0 10 ^3/uL (0-0.2); Basophils % (auto) 0.1 % (0.0-2.0); Eosinophils # (auto) 0 10 ^3/uL (0-0.8); Eosinophils % (auto) 0.1 % (0.0-7.0); Hematocrit 26.4 % (36.0-46.0); Hemoglobin 8.9 g/dL (12.2-16.2); Lymphocytes # (auto) 3.9 10 ^3/uL (0.4-5.4); Lymphocytes % (auto) 23.3 % (10.0-50.0); Mean Corpuscular Hemoglobin 31.1 pg (28.0-32.0); Mean Corpuscular Hgb Conc. 33.9 g/dL (32.0-36.0); Mean Corpuscular Volume 91.7 fL (80.0-100.0); Monocytes # (auto) 1.1 10 ^3/uL (0-1.3); Monocytes % (auto) 6.7 % (0.0-12.0); Neutrophils # (auto) 11.7 10 ^3/uL (1.6-8.6); Neutrophils % (auto) 69.8 % (37.0-80.0); Platelet Count (auto) 176 10^3/uL (140-450); Red Blood Cells 2.87 10^6/uL (4.0-5.20); Red Cell Distribution Width 14.5 % (11.8-14.3); White Blood Cell 16.8 10^3/uL (4.4-10.8)
[2024-03-15] MEDS: DOCUSATE SOD 100 MG CAP PO SCH (21:47)
[2024-03-15 22:20] LABS: Basophils # (auto) 0 10 ^3/uL (0-0.2); Basophils % (auto) 0.1 % (0.0-2.0); Eosinophils # (auto) 0 10 ^3/uL (0-0.8); Eosinophils % (auto) 0.1 % (0.0-7.0); Hematocrit 26.8 % (36.0-46.0); Hemoglobin 8.9 g/dL (12.2-16.2); Lymphocytes # (auto) 3.9 10 ^3/uL (0.4-5.4); Lymphocytes % (auto) 25.2 % (10.0-50.0); Mean Corpuscular Hemoglobin 30.7 pg (28.0-32.0); Mean Corpuscular Hgb Conc. 33.4 g/dL (32.0-36.0); Mean Corpuscular Volume 92.2 fL (80.0-100.0); Monocytes # (auto) 1.1 10 ^3/uL (0-1.3); Monocytes % (auto) 6.9 % (0.0-12.0); Neutrophils # (auto) 10.4 10 ^3/uL (1.6-8.6); Neutrophils % (auto) 67.7 % (37.0-80.0); Nucleated Red Blood Cells % 0.1 %; Platelet Count (auto) 185 10^3/uL (140-450); Red Cell Distribution Width 14.8 % (11.8-14.3); White Blood Cell 15.3 10^3/uL (4.4-10.8)
[2024-03-15 23:00] VITALS: BP 120/77; PULSE 75; RESP 18; TEMP 98
[2024-03-16 03:00] VITALS: BP 107/58; PULSE 87; RESP 16; TEMP 98.2; O2SAT 97
[2024-03-16 07:07] VITALS: BP 108/54; PULSE 91; RESP 17; TEMP 98.5; O2SAT 98
--- NOTE | 2024-03-16 07:38 | DVHPN2 ---
Chief Complaints Patient reports: No new complaints, Feels better Nursing reports: No new complaints, No abdominal pain, No chest pain, No dizziness, No cough Objective Vitals Vital Signs Date Time Temp Pulse Resp B/P (MAP) Pulse Ox O2 Delivery O2 Flow Rate FiO2 03/16/24 07:07 98.5 91 17 108/54 (72) 98 98.5 03/15/24 19:00 Room Air Medications Current Medications Medications (Trade) Dose Ordered Sig/Jose Route PRN Reason Start Time Stop Time Status Last Admin Docusate Sodium (Colace Capsule) 200 mg HS PO 03/15/24 22:00 03/15/24 21:47 General: Normal Head/Eyes: Normal ENT: Normal Neck: Normal Lungs: Normal Cardiovascular: Normal Abdominal: Normal Musculoskeletal: Normal Extremities: Normal Skin: Normal Neurological: Normal Studies Laboratory Tests 03/15/24 21:53 03/14/24 12:05 Test 03/14/24 12:05 Range/Units Serum Glucose 104 74-106 mg/dL Ass/Plan Assessment Patient postop day 2 stable improved requesting discharge home. Plan Advanced care see discharge summary see discharge orders SANTO SIMMONS DO Mar 16, 2024 07:38
--- NOTE | 2024-03-16 07:42 | DVHDS2 ---
Obstetrics Discharge Summary Obstetrics Discharge Summary Date of Admission: Mar 14, 2024 Date of Discharge: Mar 16, 2024 Reason For Admission: Onset of Labor Procedures: NST Intrapartum Procedures: Spontaneous vaginal deliv Procedures: None Operative Complicat: None Discharge Diagnosis: Term -Delivered Discharge Information: Activity (Pelvic rest ), Diet (Routine), Medications (None), Instructions (Pelvic rest 6 weeks. Serious), Discharge to, Discarge date (March 16, 2024) SANTO SIMMONS DO Mar 16, 2024 07:42
[2024-03-16 10:50] VITALS: BP 110/64; PULSE 81; RESP 16; TEMP 98.4; O2SAT 98
== END 2024-03-16 12:35 | disposition home or self-care (01) | DRG 560 ==
LOC: LDRP 09:45 → OBSVTOIN 11:40
PROVIDERS: ADMIT Obstetrics & Gynecology; ATTEND Obstetrics & Gynecology
PROC: 10E0XZZ Delivery of Products of Conception, External Approach (ICD-10-PCS; principal; 2024-03-14)
PROC: 0KQM0ZZ Repair Perineum Muscle, Open Approach (ICD-10-PCS; 2024-03-14)
PROC: 3E0R3BZ Introduction of Anesthetic Agent into Spinal Canal, Percutaneous Approach (ICD-10-PCS; 2024-03-14)
PROC: 00HU33Z Insertion of Infusion Device into Spinal Canal, Percutaneous Approach (ICD-10-PCS; 2024-03-14)
DX: O48.0 Post-term pregnancy (principal); Z37.0 Single live birth; F33.1 Major depressive disorder, recurrent, moderate; O99.344 Other mental disorders complicating childbirth; O99.12 Other diseases of the blood and blood-forming organs and certain disorders involving the immune mechanism complicating childbirth; R71.0 Precipitous drop in hematocrit; O70.1 Second degree perineal laceration during delivery; O99.824 Streptococcus B carrier state complicating childbirth; O77.0 Labor and delivery complicated by meconium in amniotic fluid; D72.829 Elevated white blood cell count, unspecified; Z3A.40 40 weeks gestation of pregnancy
CPT/HCPCS: 36415; 59025; 59409; 62282; 76815; 80053; 80307; 81001; 81002; 84112; 85025; 85610; 85730; 86850; 86900; 86901; 94760; 96360; 96361; 96365; 96372; 96374; G0378; J2405; J2540; J2590; J7060

== ENCOUNTER 2024-12-09 18:04 | Inpatient (IN) | payer MEDICAID ==
[~2024-12-09] VITALS: Ht 162.6 cm; Wt 99.0 kg
--- NOTE | 2024-12-09 18:25 | ED.PDOC ---
History of Present Illness HPI Comments 38F BIBA w/ prior MHx of depression and the c/c of back pain. Pt reports on falling on her right buttock on the sidewalk on 12/05/24 for which the pain subsided. Pt started having lower back pian when putting son down on the floor. Pt has worsening pain w/ movement. Denies any other symptoms at this time. REVIEW OF SYSTEMS: General: No fever, no chills, or fatigue HEENT: No sore throat, no earache, no congestion, no neck pain. Cardiac: No chest pain. No palpitations. Lungs: No shortness of breath, no cough. GI: No nausea, no vomiting, no diarrhea, no constipation, no abdominal pain : No dysuria, frequency, or urgency. No hematuria. Musculoskeletal: No joint pain , no joint swelling, no extremity edema. + Back pain Skin: No rash, no itching. Neuro: No headache, no dizziness, no weakness PHYSICAL EXAM: General: Awake, alert and oriented. No acute distress. Skin: Skin in warm, dry and intact without rashes or lesions. HEENT: The head is normocephalic and atraumatic. Conjunctivae are clear without exudates or hemorrhage. Sclera is non-icteric. Neck: Normal range of motion. No JVD. Cardiac: Regular rate Respiratory: No signs of respiratory distress. No Stridor. Extremities: Upper and lower extremities are atraumatic in appearance without deformity. Back: Lower midline lumbar tenderness. No deformity, trauma or edema. Neurological: The patient is awake, alert and oriented to person, place, and time with normal speech. Speech is clear. There is no facial asymmetry. Strength and sensation in lower extremities intact. Psychiatric: Appropriate mood and affect. Good judgement and insight. Chief Complaint: Back Pain Time Seen by MD: 18:30 Primary Care Provider: MAIDA Blakely Notes: Nurses Notes, Medications, Allergies Allergies: Coded Allergies: NO KNOWN ALLERGIES (Unverified , 04/28/23) Home Meds No Active Prescriptions or Reported Meds Information Source: Patient, Emergency Med Personnel Mode of Arrival: EMS Severity: Moderate Timing: Minutes Duration: Since onset, Minutes Prehospital treatment: None Past Medical History PAST MEDICAL HISTORY: Depression Surgical History: Denies all surgeries WILD LIFE MANAGER History: Denies all WILD LIFE MANAGER Hx Family History Family History: Reviewed,noncontributory to illness, Unknown Social History Smoker: Non-Smoker Alcohol: Denies ETOH Use Drugs: Denies Drug Use Lives In: Home Was a procedure done? Was a procedure done?: No Differential Dx Considerations may include: Differential diagnoses considered include but are not limited to back strain or sprain, degenerative disc disease, herniated disc, spinal stenosis, cauda equina syndrome, spinal epidural abscess, spinal fracture, metastatic cancer, aortic dissection, AAA rupture, epidural hematoma, osteomyelitis, pyelonephritis, nephrolithiasis, other X-Ray, Labs, Meds, VS Vital Signs Date Time Temp Pulse Resp B/P (MAP) Pulse Ox O2 Delivery O2 Flow Rate FiO2 12/09/24 18:09 98.6 73 20 135/55 98 98.6 Current Medications Medications (Trade) Dose Ordered Sig/Jose Route Start Time Stop Time Status Last Admin Lidocaine (Lidoderm 5% Topical Patch) 1 patch ONCE ONCE TOP 12/09/24 18:30 12/09/24 18:34 DC 12/09/24 18:30 Diazepam (Valium Tablet) 5 mg ONCE ONCE PO 12/09/24 18:30 12/09/24 18:34 DC 12/09/24 18:30 Ketorolac Tromethamine (Toradol Injection) 30 mg ONCE ONCE IV 12/09/24 19:15 12/09/24 19:16 DC 12/09/24 19:18 Acetaminophen (Ofirmev) 1,000 mg ONCE ONCE IV 12/09/24 20:30 12/09/24 20:31 DC 12/09/24 20:34 Tramadol HCl (Ultram) 50 mg ONCE ONCE PO 12/09/24 22:45 12/09/24 22:46 12/09/24 23:06 Time of 1ST Reevaluation: 19:00 Reevaluation 1ST: Unchanged Patient Education/Counseling: Need For Follow Up Family Education/Counseling: Need For Follow Up, No Family Present SEPSIS Sepsis Screen Date sepsis recognized/suspect: Dec 09, 2024 Time Sepsis recognized/suspect: 1808 Recent Procedure: No On Antibiotic Therapy: No Respiratory Rate >20: No Heart Rate >90: No Temp<36 C (96.8 F) or >38.3 C: No SBP <90 or MAP <65 mmHG: No New Acute Mental Status Change: No Is the patient on CPAP, BIPAP,: No Physician Orders Ls Spine Wo Contrast (12/09/24 18:30) Tramadol Hcl (Ultram) (12/09/24 22:45) Vital Signs Date Time Temp Pulse Resp B/P (MAP) Pulse Ox O2 Delivery O2 Flow Rate FiO2 12/09/24 18:09 98.6 73 20 135/55 98 98.6 Medications Medications Dose Ordered Sig/Jose Route Start Time Stop Time Status Last Admin Dose Admin Acetaminophen 1,000 mg ONCE ONCE IV 12/09/24 20:30 12/09/24 20:31 DC 12/09/24 20:34 Diazepam 5 mg ONCE ONCE PO 12/09/24 18:30 12/09/24 18:34 DC 12/09/24 18:30 Ketorolac Tromethamine 30 mg ONCE ONCE IV 12/09/24 19:15 12/09/24 19:16 DC 12/09/24 19:18 Lidocaine 1 patch ONCE ONCE TOP 12/09/24 18:30 12/09/24 18:34 DC 12/09/24 18:30 Tramadol HCl 50 mg ONCE ONCE PO 12/09/24 22:45 12/09/24 22:46 12/09/24 23:06 Departure 1 Departure Time of Disposition: 20:39 Impression: Primary Impression: Intractable back pain Disposition: ADMITTED INPATIENT Condition: Stable e-Prescriptions No Active Prescriptions or Reported Meds Comments Patient admitted to hospitalist service for further treatment, evaluation and monitoring. Critical Care Note Critical Care Time?: No Stability Stability form required: No Heart Score Heart Score: Heart Score Response (Comments) Value History N/A 0 EKG N/A 0 Age N/A 0 Risk Factors N/A 0 Troponin N/A 0 Total 0 I personally scribed for ILYA OLVERA MD ([email or web address]) on 12/09/24 at 18:30. Electronically submitted by Joe Hill ([email or web address]). ILYA OLVERA MD Dec 09, 2024 18:25
[2024-12-09] MEDS: LIDOCAINE 5% TOPICAL PATCH TOP ONE (18:30)
[2024-12-09] MEDS: KETOROLAC TROMETH 60MG/2ML VIAL IM ONE (18:30)
[2024-12-09] MEDS: diazePAM 5 MG TAB PO ONE (18:30)
[2024-12-09 19:00] VITALS: PULSE 58; RESP 18; O2SAT 98
[2024-12-09] MEDS: KETOROLAC TROMETH 30 MG/ML 1ML VIAL IV ONE (19:18)
--- NOTE | 2024-12-09 19:23 | DVH ---
EXAM: CT LS SPINE WO CONTRAST INDICATION: Severe sudden onset low back pain TECHNIQUE: Axial images of the lumbar spine have been obtained along with coronal and sagittal reform atted images. CT scans at this facility use dose modulation, iterative reconstruction, and/or weight based dosing when appropriate to reduce radiation dose to as low as reasonably achievable. COMPARISON: None Dose: CTDIvol: 33.34 mGy, DLP: 1085.69 mGy.cm FINDINGS: There is no acute displaced fracture. There are multilevel degenerative changes of the lumbar spine c haracterized by endplate osteophytosis and irregularity with multilevel Schmorl's nodes. Interverteb ral disc heights are maintained. The paraspinal soft tissues are unremarkable. Probable left parapelv ic renal cysts. LEVEL BY LEVEL DISCUSSION BELOW: T12-L1: Unremarkable. L1-L2: A disc protrusion with associated osteophyte effaces the thecal sac. There is no significant s julieta canal or neural foraminal stenosis. L2-L3: Unremarkable. L3-L4: A mild disc protrusion effaces the thecal sac. There is no significant spinal canal or neural foraminal stenosis. L4-L5: A disc protrusion effaces the thecal sac. There is facet arthropathy. There is no significant spinal canal or neural foraminal stenosis. L5-S1: A mild disc protrusion effaces the thecal sac. There is facet arthropathy. There is no signif icant spinal canal or neural foraminal stenosis. IMPRESSION: 1. No acute displaced fracture. 2. Mild degenerative changes of the lumbar spine as detailed. If clinical symptoms persist, MRI may be beneficial in further evaluation.
[2024-12-09] MEDS: ACETAMINOPHEN IV 1000 MG/100ML (10MG/ML) IV ONE (20:34)
[2024-12-09] MEDS ORDERED: IBUPROFEN 600 MG TAB PO PRN (23:30)
[2024-12-09] MEDS ORDERED: HYDROcodone-ACET 5/325MG TAB PO PRN (23:30)
--- NOTE | 2024-12-09 23:31 | DVHHPRES ---
History of Present Illness Resident Creating Document: KATHERINE GHOSH RESIDENT History of Present Illness This is a 38-year-old female with prior medical history of depression, anxiety, PTSD who came in with a chief complaint of back pain. patient reports that she has been having this back pain since her child was born 9 months ago but in the last month has been increasing. She reports that on 12/05/2024 she fell on her right buttock on the sidewalk when she took a misstep but it went away until today afternoon when she was carrying her baby who has 20 lb and her back gave away. She reports that she fell down on her back but did not hit her head and lost no consciousness. She was unable to move and had to call EMS to bring her to the hospital. She reports that pain is 10/10 in intensity, all over the lower back and hips, pelvic region and increases on sitting up, any movement, raising her legs and flexing her legs. She feels slight tingling sensation on the left thigh. On admission her vitals were normal, white blood cell was elevated at 11.2. LS spine without contrast showed no acute displaced fracture, mild degenerative changes of the lumbar spine with disc protrusion at L1-L2, L3- L4, L4-L5 and L5-S1. We are admitting the patient for further workup and management Past medical history: Anxiety, depression, PTSD Past surgical history: None Family history: Reviewed and noncontributory to the management of this case Social history: Denies taking drugs, drinking alcohol or smoking home medications: sertraline 75 mg PCP: Nurse practitioner Amber Allergies: Shrimp, no known medical allergy Code status: Full code Review of Systems Constitutional: No: Fever, Chills, Sweats, Weakness, Malaise, Other Eyes: No: Pain, Vision change, Conjunctivae inflammation, Eyelid inflammation, Other, Redness ENT: No: Ear pain, Ear discharge, Nose pain, Nose discharge, Nose congestion, Mouth pain, Mouth swelling, Throat pain, Throat swelling, Other Respiratory: No: Cough, Dry, Shortness of breath, SOB with excertion, Wheezing, Hemoptysis, Pleuritic Pain, Sputum, Wheezing, Other Cardiovascular: No: Chest Pain, Palpitations, Orthopnea, Paroxysmal Noc. Dyspnea, Edema, Lt Headedness, Other Gastrointestinal: No: Nausea, Vomiting, Abdominal Pain, Diarrhea, Constipation, Melena, Hematochezia, Other Genitourinary: No Dysuria, No Frequency, No Incontinence, No Hematuria, No Retention, No Other Musculoskeletal: other, neck pain, shoulder pain, arm pain, back pain, hand pain, leg pain, foot pain Skin: No: Rash, Lesions, Jaundice, Bruising, Other Neurological: No: Weakness, Numbness, Incoordination, Change in speech, Confusion, Seizures, Other Allergies: Coded Allergies: NO KNOWN ALLERGIES (Unverified , 04/28/23) Exam Vital Signs Vital Signs Date Time Temp Pulse Resp B/P (MAP) Pulse Ox O2 Delivery O2 Flow Rate FiO2 12/09/24 18:09 98.6 73 20 135/55 98 98.6 Exam Pt is lying on bed General Appearance: Alert, Oriented X3, Cooperative, Not mild distress HEENT: Atraumatic, Mucous membranes moist/pink Respiratory: Clear to auscultation, Normal air movement, No added sounds Cardiovascular: Regular rate, Normal S1, Normal S2, No murmurs Abdominal: Active bowel sounds, Soft, no distention, no tenderness Extremities: No edema, Normal pulses, tenderness in the lower back, more in the right lower back, patient is unable to raise legs and flex knees, tenderness on passive movement of bilateral legs Skin: No Significant rash, except past surgical scars Neuro: Normal speech, sensorimotor deficits none Psych/Mental Status: Mental status NL, Mood NL SEPSIS Sepsis Screen Date sepsis recognized/suspect: Dec 09, 2024 Time Sepsis recognized/suspect: 1808 Recent Procedure: No On Antibiotic Therapy: No Respiratory Rate >20: No Heart Rate >90: No Temp<36 C (96.8 F) or >38.3 C: No SBP <90 or MAP <65 mmHG: No New Acute Mental Status Change: No Is the patient on CPAP, BIPAP,: No Physician Orders Ls Spine Wo Contrast (12/09/24 18:30) Tramadol Hcl (Ultram) (12/09/24 22:45) Admit (12/09/24 23:21) Code Status (12/09/24 23:21) Hydrocodone-Acet 5/325mg Tab ([place] 5/32 (12/09/24 23:30) Ondansetron Hcl (Zofran) (12/09/24 23:30) Complete Blood Count (12/10/24 04:00) Comprehensive Metabolic Panel (12/10/24 04:00) Pt Request For Service (12/09/24 23:21) Condition: Unstable (12/09/24 23:21) Lovenox 40mg (12/09/24 23:30) Stat Ekg For Chest Pain (12/09/24 23:21) Notify Of Changes From Base (12/09/24 23:21) Regular Diet (12/10/24 Breakfast) Complete Blood Count (12/09/24 23:21) Comprehensive Metabolic Panel (12/09/24 23:21) Urinalysis (12/09/24 23:21) Drug Screen (12/09/24 23:21) Hydromorphone Injection (Dilaudid Inject (12/09/24 23:30) Insert Mace Catheter QSHIFT (12/09/24 23:21) R Hip Complete Xray (12/09/24 23:21) L Hip Complete Xray (12/09/24 23:21) Lumbar Spine Wo Contrast (12/09/24 23:21) Lidocaine 5% Topical Patch (Lidoderm 5% (12/10/24 10:00) Ibuprofen Tablet (Motrin Tablet) (12/09/24 23:30) Vital Signs Date Time Temp Pulse Resp B/P (MAP) Pulse Ox O2 Delivery O2 Flow Rate FiO2 12/09/24 18:09 98.6 73 20 135/55 98 98.6 Medications Medications Dose Ordered Sig/Jose Route Start Time Stop Time Status Last Admin Dose Admin Acetaminophen 1,000 mg ONCE ONCE IV 12/09/24 20:30 12/09/24 20:31 DC 12/09/24 20:34 1,000 MG Diazepam 5 mg ONCE ONCE PO 12/09/24 18:30 12/09/24 18:34 DC 12/09/24 18:30 5 MG Ketorolac Tromethamine 30 mg ONCE ONCE IV 12/09/24 19:15 12/09/24 19:16 DC 12/09/24 19:18 30 MG Lidocaine 1 patch ONCE ONCE TOP 12/09/24 18:30 12/09/24 18:34 DC 12/09/24 18:30 1 PATCH Tramadol HCl 50 mg ONCE ONCE PO 12/09/24 22:45 12/09/24 22:46 12/09/24 23:06 50 MG Assessment/Plan Assessment/Plan #Intractable back pain due to mechanical fall #rule out lumbar radiculopathy, spinal stenosis -LS spine without contrast showed no acute displaced fracture, mild degenerative changes of the lumbar spine with disc protrusion at L1-L2, L3-L4, L4-L5 and L5- S1 - right and left hip x-ray, pending - pain management with: Toradol 60 mg IM once acetaminophen 600 mg p.o. q.4 PRN for mild pain [place] 5/325 mg p.o. q.4 PRN for moderate pain Dilaudid 0. to 5 mg IV q.4 PRN for severe pain Lidocaine 5% topical patches daily - baclofen 5 mg p.o. Q 8 PRN for muscle spasms - UDS - Mace's catheter placed as patient is unable to move, UA ordered - physical therapy, pending - MRI of lumbar spine without contrast # anxiety # depression # PTSD - sertraline 75 mg p.o. home medication continue daily DVT prophylaxis: Lovenox 40 mg subcutaneous daily Diet: regular diet Goals of care discussed with the patient for more than 27 minutes: Full code status Case discussed with , patient and her Plan discussed with: Patient My Orders Orders - KATHERINE GHOSH RESIDENT Procedure Category Date Status Time Admit ADMIT 12/09/24 Verified 23:21 Code Status CODE 12/09/24 Verified 23:21 Hydrocodone-Acet PHA 12/09/24 Verified 5/325mg Tab ([place] 23:30 Ondansetron Hcl PHA 12/09/24 Verified (Zofran) 23:30 Complete Blood Count LAB 12/10/24 Verified 04:00 Comprehensive LAB 12/10/24 Verified Metabolic Panel 04:00 Pt Request For Service PT 12/09/24 Verified 23:21 Condition: Unstable ADI 12/09/24 Verified 23:21 Lovenox 40mg PHA 12/09/24 Verified 23:30 Stat Ekg For Chest ADI 12/09/24 Verified Pain 23:21 Notify Of Changes ADI 12/09/24 Verified From Base 23:21 Regular Diet DIET 12/10/24 Verified Breakfast Complete Blood Count LAB 12/09/24 Verified 23:21 Comprehensive LAB 12/09/24 Verified Metabolic Panel 23:21 Urinalysis LAB 12/09/24 Verified 23:21 Drug Screen LAB 12/09/24 Verified 23:21 Hydromorphone PHA 12/09/24 Verified Injection (Dilaudid 23:30 Insert Mace Catheter ADI 12/09/24 Verified 23:21 R Hip Complete Xray XY 12/09/24 Verified 23:21 L Hip Complete Xray XY 12/09/24 Verified 23:21 Lumbar Spine Wo MRI 12/09/24 Verified Contrast 23:21 Lidocaine 5% Topical PHA 12/10/24 Verified Patch (Lidoderm 5% 10:00 Ibuprofen Tablet PHA 12/09/24 Verified (Motrin Tablet) 23:30 Date of Service: Dec 09, 2024 Billing Provider: JOSE RAUL MASSEY MD Common Visit Codes: [id number] INP/OBS CARE (HIGH) KATHERINE GHOSH RESIDENT Dec 09, 2024 23:31 JOSE RAUL MASSEY MD Dec 10, 2024 17:03
[2024-12-09 23:44] LABS: Hematocrit 42.7 % (36.0-46.0); Hemoglobin 14.1 g/dL (12.2-16.2); Mean Corpuscular Hemoglobin 28.8 pg (28.0-32.0); Mean Corpuscular Volume 87.1 fL (80.0-100.0); Nucleated Red Blood Cells % 0.0 %
[2024-12-09] MEDS: ENOXAPARIN SOD 40 MG/0.4 ML SYRINGE SC ONE (23:45)
[2024-12-10 00:07] LABS: Alanine Aminotransferase 24 U/L (7-40); Albumin 4.3 g/dL (3.2-4.8); Alkaline Phosphatase 106 U/L (46-116); Anion Gap 11 (5-15); BUN/Creatinine Ratio 16.4 (10.0-20.0); Blood Urea Nitrogen 11 mg/dL (9-23); Calcium 9.3 mg/dL (8.7-10.4); Carbon Dioxide 21 mmol/L (20-31); Chloride 107 mmol/L (98-107); Glucose 101 mg/dL (74-106); Potassium 4.2 mmol/L (3.5-5.1); Sodium 139 mmol/L (136-145); Total Protein 7.9 g/dL (5.7-8.2)
[2024-12-10 00:08] LABS: Bilirubin, Total 0.5 mg/dL (0.2-1.0)
[2024-12-10] MEDS: HYDROmorphone HCL 2 MG/ML VL/or syr IV PRN (00:33)
[2024-12-10] MEDS: BACLOFEN 10 MG TAB PO PRN (02:27)
[2024-12-10 03:57] LABS: Hematocrit 42.7 % (36.0-46.0); Hemoglobin 14.6 g/dL (12.2-16.2); Mean Corpuscular Hemoglobin 29.7 pg (28.0-32.0); Mean Corpuscular Volume 86.9 fL (80.0-100.0); Nucleated Red Blood Cells % 0.0 %
[2024-12-10 04:18] LABS: Alanine Aminotransferase 23 U/L (7-40); Albumin 4.3 g/dL (3.2-4.8); Alkaline Phosphatase 107 U/L (46-116); Anion Gap 8 (5-15); BUN/Creatinine Ratio 15.1 (10.0-20.0); Bilirubin, Total 0.5 mg/dL (0.2-1.0); Blood Urea Nitrogen 11 mg/dL (9-23); Calcium 9.5 mg/dL (8.7-10.4); Carbon Dioxide 24 mmol/L (20-31); Chloride 105 mmol/L (98-107); Potassium 4.3 mmol/L (3.5-5.1); Sodium 137 mmol/L (136-145); Total Protein 7.9 g/dL (5.7-8.2)
[2024-12-10 04:30] LABS: Glucose 160 mg/dL (74-106)
[2024-12-10 05:00] VITALS: BP 120/53; PULSE 52; RESP 18; TEMP 98; O2SAT 97
[2024-12-10] MEDS: ONDANSETRON HCL 4 MG/2 ML VIAL IV PRN (08:47)
[2024-12-10 08:57] VITALS: BP 113/64; PULSE 64; RESP 16; TEMP 98.7; O2SAT 98
[2024-12-10] MEDS: SERTRALINE HCL 50 MG TAB PO SCH (09:58)
--- NOTE | 2024-12-10 09:58 | DVH ---
CLINICAL INDICATION: hip pain TECHNIQUE: XY R HIP COMPLETE XRAY, XY L HIP COMPLETE XRAY Comparison: XY L HIP COMPLETE XRAY on DOS: 12/10/24 FINDINGS/IMPRESSION: : There is no evidence of acute fracture or dislocation. Hip joint spaces are maintained. Sacroiliac joints are maintained. Phleboliths project over the pelvis. Mace catheter projects over the pelvis.
[2024-12-10] MEDS: ENOXAPARIN SOD 40 MG/0.4 ML SYRINGE SC SCH (10:15)
--- NOTE | 2024-12-10 11:54 | DVH ---
CLINICAL INFORMATION: Severe back pain. Unable to move her legs. Lifting injury. TECHNIQUE: Multisequence multiplanar MRI images of the lumbar spine were obtained without contrast. COMPARISON: CT LS SPINE WO CONTRAST on DOS: 12/09/24 INTERPRETATION: Vertebral body alignment is within normal limits. Vertebral body heights are mainta ined. Posterior elements are intact. No focal suspicious marrow signal abnormality. Visualized sp inal cord and cauda equina are within normal limits. The conus medullaris is appropriate in signal a t the L1 level. There is edema along the posterior aspect of the L1 spinous process near the suprasp inous ligament, possible sprain in the appropriate clinical setting. Paraspinal soft tissues are othe rwise unremarkable. There are partially visualized T2 hyperintense structures in the left kidney para pelvic region, most likely parapelvic cysts. L1-L2: Mild disc bulge mildly indenting the ventral aspect of the thecal sac without significant spi nal canal stenosis. No significant neural foraminal stenosis. L2-L3: No significant disc/facet abnormality. No significant spinal canal or neural foraminal stenos is. L3-L4: No significant disc/facet abnormality. No significant spinal canal or neural foraminal stenos is. L4-L5: No significant disc/facet abnormality. No significant spinal canal or neural foraminal stenos is. L5-S1: Minimal disc bulge. No significant spinal canal or neural foraminal stenosis. IMPRESSION: 1. Mild disc bulge at L1-L2 and minimal disc bulge at L5-S1 without significant spinal canal stenosis . Otherwise, no significant spinal canal or neural foraminal stenosis in the lumbar spine. 2. Mild edema posterior to the L1 spinous process, possible sprain of the supraspinous ligament. Cor relate with clinical findings. 3. Additional nonacute findings as described above.
[2024-12-10 12:37] VITALS: BP 110/68; PULSE 82; RESP 17; TEMP 98.2; O2SAT 96
[2024-12-10] MEDS: LORazepam 2MG/ML-1ML VIAL IV PRN (12:48)
[2024-12-10] MEDS: ACETAMINOPHEN 325 MG TAB PO SCH (12:48)
[2024-12-10] MEDS: KETOROLAC TROMETH 30 MG/ML 1ML VIAL IV SCH (14:25)
[2024-12-10] MEDS: BACLOFEN 10 MG TAB PO SCH (14:25)
--- NOTE | 2024-12-10 15:21 | DVHPN2 ---
Assessment/Plan Assessment/Plan progress note 34 F with obesity and recent admitted for intractable back pain s/p mech fall. seen today. MRI with L1 sprain. no sig spinal canal stenosis physical exam aox4 obese clear breath sounds s1 s2 rrr abdomen no LE edema msk neuro exam b/l foot, normal plantar and dorsiflexion, normal sensation to touch b/l knee flexion and extension normal b/l hip limited ROM to pain, normal sensation to touch, mild tingling on lateral L thigh no paraspinal tenderness no CVA tenderness unable to perform SLR NORRIS limited to pain no bowel or bladder incontinence labs ekg imaging reviewed assessment and plan spinal sprain muscle spasm intractable back pain baclofen motrin Tylenol dilaudid prn severe pain PT diet reg dvt ppx lovenox full code Plan discussed with: Patient My Orders Orders - BRIAN SHAHID MD Procedure Category Date Status Time Acetaminophen Tablet PHA 12/10/24 In Process (Tylenol Tablet) 14:00 Ketorolac Injection PHA 12/10/24 In Process (Toradol Injection) 14:00 Lorazepam 2mg/Ml Inj PHA 12/10/24 In Process (Ativan Inj) 12:00 Baclofen Tablet PHA 12/10/24 In Process (Liorisal Tablet) 14:00 Date of Service: Dec 10, 2024 Billing Provider: BRIAN SHAHID MD Common Visit Codes: [id number] INP/OBS CARE(HIGH) BRIAN SHAHID MD Dec 10, 2024 15:21
[2024-12-10 16:51] VITALS: BP 105/57; PULSE 65; RESP 16; TEMP 98; O2SAT 97
[2024-12-10] MEDS: LIDOCAINE 5% TOPICAL PATCH TOP SCH (18:00)
[2024-12-10 21:00] VITALS: BP 113/73; PULSE 63; RESP 17; TEMP 97.7; O2SAT 98
[2024-12-11] MEDS: ONDANSETRON HCL 4 MG/2 ML VIAL IV ONE (02:41)
[2024-12-11 05:00] VITALS: BP 114/68; PULSE 62; RESP 18; TEMP 97.7; O2SAT 96
[2024-12-11 08:32] VITALS: BP 99/62; PULSE 54; RESP 16; TEMP 98.1; O2SAT 96
[2024-12-11 13:21] VITALS: BP 127/90; PULSE 64; RESP 17; TEMP 98.2; O2SAT 98
--- NOTE | 2024-12-11 13:55 | DVHPN2 ---
Assessment/Plan Assessment/Plan progress note 34 F with obesity and recent admitted for intractable back pain s/p mech fall. seen today. on off episode of incontinence, able to hold stool and urine however when standing up lose control. LOKESH with postiive rectal tone and stool in vault. mild inner thigh sensory deficit L side. consulting spine ortho physical exam aox4 obese clear breath sounds s1 s2 rrr abdomen no LE edema msk neuro exam b/l foot, normal plantar and dorsiflexion, normal sensation to touch b/l knee flexion and extension normal b/l hip limited ROM to pain, normal sensation to touch, mild tingling on lateral L thigh no paraspinal tenderness no CVA tenderness unable to perform SLR NORRIS limited to pain LKOESH with normal rectal tone labs ekg imaging reviewed 1. Mild disc bulge at L1-L2 and minimal disc bulge at L5-S1 without significant spinal canal stenosis. Otherwise, no significant spinal canal or neural foraminal stenosis in the lumbar spine. 2. Mild edema posterior to the L1 spinous process, possible sprain of the supraspinous ligament. Correlate with clinical findings. assessment and plan spinal sprain muscle spasm intractable back pain myelopathy w/o? baclofen motrin Tylenol dilaudid prn severe pain PT spine eval decadron diet reg dvt ppx lovenox full code Plan discussed with: Patient My Orders Orders - BRIAN SHAHID MD Procedure Category Date Status Time Ondansetron Hcl PHA 12/11/24 In Process (Zofran) 10:[address] Yassine CONS 12/11/24 Transmitted [place](Spine) 12:26 Date of Service: Dec 11, 2024 Billing Provider: BRIAN SHAHID MD Common Visit Codes: [id number] INP/OBS CARE(HIGH) BRIAN SHAHID MD Dec 11, 2024 13:55
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
[2024-12-11 17:03] VITALS: BP 115/70; PULSE 56; RESP 17; TEMP 98.6; O2SAT 98
[2024-12-11 21:00] VITALS: BP 120/80; PULSE 61; RESP 18; TEMP 98; O2SAT 96
[2024-12-12 01:00] VITALS: BP 131/83; PULSE 56; RESP 18; TEMP 97.8; O2SAT 95
[2024-12-12 05:00] VITALS: BP 110/72; PULSE 57; RESP 18; TEMP 98.1; O2SAT 96
[2024-12-12] MEDS: ONDANSETRON HCL 4 MG/2 ML VIAL IV PRN (08:48)
[2024-12-12] MEDS ORDERED: FAMO-161 PO (08:52)
[2024-12-12] MEDS ORDERED: IBU600T PO (08:52)
[2024-12-12] MEDS ORDERED: ACET-1882 PO (08:52)
[2024-12-12] MEDS ORDERED: CYCL-839 PO (08:52)
[2024-12-12] MEDS ORDERED: HYDR-4902 PO (08:52)
[2024-12-12 09:00] VITALS: BP 130/90; PULSE 55; RESP 18; TEMP 98; O2SAT 96
[2024-12-12 13:00] VITALS: BP 122/83; PULSE 52; RESP 20; TEMP 97.8; O2SAT 94
[2024-12-12] MEDS: CYCLOBENZAPRINE HCL 10 MG TAB PO SCH (14:10)
[2024-12-12 17:00] VITALS: BP_SYST 112; BP_SYST 175; BP_DIAS 65; BP_DIAS 80; PULSE 53; PULSE 60; RESP 20; TEMP 98; TEMP 98.1; O2SAT 96; O2SAT 99
--- NOTE | 2024-12-12 19:53 | DVHPN2 ---
Assessment/Plan Assessment/Plan progress note 34 F with obesity and recent admitted for intractable back pain s/p mech fall. seen today. seen by ortho spine, cleared. dc once pain controlled. switching oxy 2/2 nausea. adding pepcid physical exam aox4 obese clear breath sounds s1 s2 rrr abdomen no LE edema msk neuro exam b/l foot, normal plantar and dorsiflexion, normal sensation to touch b/l knee flexion and extension normal b/l hip limited ROM to pain, normal sensation to touch, mild tingling on lateral L thigh no paraspinal tenderness no CVA tenderness unable to perform SLR NORRIS limited to pain LOKESH with normal rectal tone labs ekg imaging reviewed 1. Mild disc bulge at L1-L2 and minimal disc bulge at L5-S1 without significant spinal canal stenosis. Otherwise, no significant spinal canal or neural foraminal stenosis in the lumbar spine. 2. Mild edema posterior to the L1 spinous process, possible sprain of the supraspinous ligament. Correlate with clinical findings. assessment and plan spinal sprain muscle spasm intractable back pain myelopathy w/o? baclofen motrin Tylenol norco PT spine eval decadron diet reg dvt ppx lovenox full code Plan discussed with: Patient My Orders Orders - BRIAN SHAHID MD Procedure Category Date Status Time Cyclobenzaprine PHA 12/12/24 In Process Tablet (Flexeril 14:00 Date of Service: Dec 12, 2024 Billing Provider: BRIAN SHAHID MD Common Visit Codes: [id number] INP/OBS CARE(HIGH) BRIAN SHAHID MD Dec 12, 2024 19:53
[2024-12-12 21:00] VITALS: BP 119/74; PULSE 53; RESP 16; TEMP 97.6; O2SAT 98
[2024-12-13] VITALS (8 sets, daily range): BP systolic 104–119; BP diastolic 62–83; PULSE 49–75; RESP 15–18; TEMP 97.6–98.2; O2SAT 96–99
[2024-12-13] MEDS: FAMOTIDINE 20 MG TAB PO SCH (09:06)
[2024-12-13] MEDS: HYDROcodone-ACET 5/325MG TAB PO PRN (09:07)
--- NOTE | 2024-12-13 13:51 | DVHPN2 ---
Subjective The patient seen and examined at bedside. Stating that her back hurt her so much today because she overwork with PT yesterday. Also complains of pain when urinate. Reviewed: Care Plan, H&P, Labs, Medications, Previous Orders, Radiology Changes from previous H/P or p: No Changes Eyes: No Pain, No Vision change, No Conjunctivae inflammation, No Eyelid inflammation, No Other, No Redness ENT: No Ear pain, No Ear discharge, No Nose pain, No Nose discharge, No Nose congestion, No Mouth pain, No Mouth swelling, No Throat pain, No Throat swelling, No Other Cardiovascular: No Chest Pain, No Palpitations, No Orthopnea, No Paroxysmal Noc. Dyspnea, No Edema, No Lt Headedness, No Other Respiratory: No Cough, No Dry, No Shortness of breath, No SOB with excertion, No Wheezing, No Hemoptysis, No Pleuritic Pain, No Sputum, No Other Gastrointestinal: No Nausea, No Vomiting, No Abdominal Pain, No Diarrhea, No Constipation, No Melena, No Hematochezia, No Other Genitourinary: No Dysuria, No Frequency, No Incontinence, No Hematuria, No Retention, No Other Musculoskeletal: other, neck pain, shoulder pain, arm pain, back pain, hand pain, leg pain, foot pain Skin: No Rash, No Lesions, No Jaundice, No Bruising, No Other Objective Vitals Vital Signs Date Time Temp Pulse Resp B/P (MAP) Pulse Ox O2 Delivery O2 Flow Rate FiO2 12/13/24 08:37 98.0 58 16 112/77 (89) 99 98.0 12/13/24 08:00 Room Air* 0 21 Intake/Output Intake and Output 12/13/24 07:00 Intake Total 1963 ml Output Total 1250 ml Balance 713 ml Intake Oral 1963 ml Output Urine Total 1250 ml # Voids 1 General Appearance: Alert, Oriented X3, Cooperative, No acute distress HEENT: Atraumatic, PERRLA, EOMI, Mucous membr. moist/pink Neck: Supple Lungs: Clear to auscultation, Normal air movement Cardiovascular: Regular rate, Normal S1, Normal S2, No murmurs, Gallops, Rubs Abdomen: Normal bowel sounds, Soft, No tenderness Neuro: Cranial nerves 3-12 NL Psych/Mental Status: Mental status NL Medications Current Medications Medications Dose Ordered Sig/Jose Route Start Time Stop Time Status Last Admin Dose Admin Enoxaparin Sodium 40 mg DAILY SC 12/10/24 10:00 12/11/24 10:21 40 MG Hydromorphone HCl 0.25 mg Q4HPRN PRN IV 12/09/24 23:30 12/12/24 01:34 0.25 MG Lidocaine 1 patch DAILY@1800 TOP 12/10/24 18:00 12/12/24 17:58 1 PATCH Sertraline HCl 75 mg DAILY PO 12/10/24 10:00 12/13/24 09:07 75 MG Acetaminophen 650 mg Q8HR PO 12/10/24 14:00 12/13/24 05:47 650 MG Ketorolac Tromethamine 30 mg Q8HR IV 12/10/24 14:00 12/15/24 13:59 12/13/24 05:46 30 MG Lorazepam 0.5 mg Q12HP PRN IV 12/10/24 12:00 12/10/24 12:48 0.5 MG Ondansetron HCl 4 mg Q8HPRN PRN IV 12/11/24 10:45 12/12/24 08:48 4 MG Cyclobenzaprine HCl 10 mg TID PO 12/12/24 14:00 12/13/24 05:46 10 MG Acetaminophen/ Hydrocodone Bitart 1 tab Q8HPRN PRN PO 12/12/24 20:00 12/13/24 09:07 1 TAB Famotidine 20 mg DAILY PO 12/13/24 10:00 12/13/24 09:06 20 MG Laboratory Results Laboratory Tests 12/10/24 03:39 Labs and/or images reviewed: Labs reviewed by me Assessment/Plan Assessment/Plan spinal sprain muscle spasm intractable back pain myelopathy w/o? UTI Continue baclofen Continue with ibuprofen and Tylenol,norco PT spine eval decadron IV UA review show evidence of UTI Start rocephin 1gm IV qday. Plan discussed with: Patient Date of Service: Dec 13, 2024 Billing Provider: LIZA CABALLERO MD Common Visit Codes: [id number] INP/OBS CARE(HIGH) LIZA CABALLERO MD Dec 13, 2024 13:51
[2024-12-13 16:26] LABS: Urine Protein, UAD TRACE (Negative)
[2024-12-14] VITALS (8 sets, daily range): BP systolic 97–122; BP diastolic 55–90; PULSE 55–90; RESP 16–20; TEMP 97.1–98.7; O2SAT 96–99
[2024-12-14 15:31] LABS: Hematocrit 41.0 % (36.0-46.0); Hemoglobin 13.5 g/dL (12.2-16.2); Mean Corpuscular Hemoglobin 29.1 pg (28.0-32.0); Mean Corpuscular Volume 88.3 fL (80.0-100.0); Nucleated Red Blood Cells % 0.1 %
[2024-12-14 15:57] LABS: Albumin 3.8 g/dL (3.2-4.8); Alkaline Phosphatase 100 U/L (46-116); Anion Gap 7 (5-15); BUN/Creatinine Ratio 16.5 (10.0-20.0); Blood Urea Nitrogen 17 mg/dL (9-23); Calcium 8.8 mg/dL (8.7-10.4); Carbon Dioxide 29 mmol/L (20-31); Chloride 104 mmol/L (98-107); Glucose 86 mg/dL (74-106); Potassium 4.3 mmol/L (3.5-5.1); Sodium 140 mmol/L (136-145); Total Protein 6.9 g/dL (5.7-8.2)
[2024-12-14 16:00] LABS: Alanine Aminotransferase 56 U/L (7-40); Bilirubin, Total 0.2 mg/dL (0.2-1.0)
--- NOTE | 2024-12-14 23:02 | DVHPN2 ---
Subjective The patient seen and examined at bedside. Stating that her back hurt her so much today because she overwork with PT yesterday. Also complains of pain when urinate. Reviewed: Care Plan, H&P, Labs, Medications, Previous Orders, Radiology Changes from previous H/P or p: No Changes Eyes: No Pain, No Vision change, No Conjunctivae inflammation, No Eyelid inflammation, No Other, No Redness ENT: No Ear pain, No Ear discharge, No Nose pain, No Nose discharge, No Nose congestion, No Mouth pain, No Mouth swelling, No Throat pain, No Throat swelling, No Other Cardiovascular: No Chest Pain, No Palpitations, No Orthopnea, No Paroxysmal Noc. Dyspnea, No Edema, No Lt Headedness, No Other Respiratory: No Cough, No Dry, No Shortness of breath, No SOB with excertion, No Wheezing, No Hemoptysis, No Pleuritic Pain, No Sputum, No Other Gastrointestinal: No Nausea, No Vomiting, No Abdominal Pain, No Diarrhea, No Constipation, No Melena, No Hematochezia, No Other Genitourinary: No Dysuria, No Frequency, No Incontinence, No Hematuria, No Retention, No Other Musculoskeletal: other, neck pain, shoulder pain, arm pain, back pain, hand pain, leg pain, foot pain Skin: No Rash, No Lesions, No Jaundice, No Bruising, No Other Objective Vitals Vital Signs Date Time Temp Pulse Resp B/P (MAP) Pulse Ox O2 Delivery O2 Flow Rate FiO2 12/14/24 16:35 97.6 79 18 105/69 (81) 99 97.6 12/14/24 08:00 Room Air* 0 21 Intake/Output Intake and Output 12/14/24 07:00 Intake Total 880 ml Balance 880 ml Intake Oral 880 ml # Voids 2 General Appearance: Alert, Oriented X3, Cooperative, No acute distress HEENT: Atraumatic, PERRLA, EOMI, Mucous membr. moist/pink Neck: Supple Lungs: Clear to auscultation, Normal air movement Cardiovascular: Regular rate, Normal S1, Normal S2, No murmurs, Gallops, Rubs Abdomen: Normal bowel sounds, Soft, No tenderness Neuro: Cranial nerves 3-12 NL Psych/Mental Status: Mental status NL Medications Current Medications Medications Dose Ordered Sig/Jose Route Start Time Stop Time Status Last Admin Dose Admin Enoxaparin Sodium 40 mg DAILY SC 12/10/24 10:00 12/11/24 10:21 40 MG Hydromorphone HCl 0.25 mg Q4HPRN PRN IV 12/09/24 23:30 12/12/24 01:34 0.25 MG Lidocaine 1 patch DAILY@1800 TOP 12/10/24 18:00 12/14/24 18:09 1 PATCH Sertraline HCl 75 mg DAILY PO 12/10/24 10:00 12/14/24 09:27 75 MG Acetaminophen 650 mg Q8HR PO 12/10/24 14:00 12/14/24 21:45 650 MG Ketorolac Tromethamine 30 mg Q8HR IV 12/10/24 14:00 12/15/24 13:59 12/14/24 21:45 30 MG Lorazepam 0.5 mg Q12HP PRN IV 12/10/24 12:00 12/10/24 12:48 0.5 MG Ondansetron HCl 4 mg Q8HPRN PRN IV 12/11/24 10:45 12/12/24 08:48 4 MG Cyclobenzaprine HCl 10 mg TID PO 12/12/24 14:00 12/14/24 21:45 10 MG Acetaminophen/ Hydrocodone Bitart 1 tab Q8HPRN PRN PO 12/12/24 20:00 12/14/24 09:30 1 TAB Famotidine 20 mg DAILY PO 12/13/24 10:00 12/14/24 09:27 20 MG Ceftriaxone Sodium 50 ml @ 100 mls/hr DAILY@09 IV 12/14/24 09:00 12/14/24 09:27 100 MLS/HR Laboratory Results Laboratory Tests 12/14/24 14:55 Chemistry Test 12/14/24 14:55 Albumin 3.8 g/dL (3.2-4.8) Calcium Level 8.8 mg/dL (8.7-10.4) Total Protein 6.9 g/dL (5.7-8.2) LFT Test 12/14/24 14:55 Alanine Aminotransferase (ALT) 56 U/L (7-40) H Alkaline Phosphatase 100 U/L (46-116) Aspartate Amino Transferase (AST) 30 U/L (13-40) Total Bilirubin 0.2 mg/dL (0.2-1.0) Urinalysis Test 12/13/24 15:28 Urine Color Light-orange (Yellow) Urine Clarity Turbid (Clear) H Urine pH 6.0 (5.0-9.0) Urine Specific [place] 1.018 (1.001-1.035) Urine Protein Trace (Negative) H Urine Ketones Negative (Negative) Urine Blood 3+ /uL (Negative) H Urine Nitrite Negative (Negative) Urine Bilirubin Negative (Negative) Urine Urobilinogen Normal mg/dL (Negative) Urine Leukocyte Esterase 3+ /uL (Negative) Urine RBC 214 /hpf (0 - 4) Urine Microscopic WBC 458 /HPF (0-5) H Urine Squamous Epithelial Cells Few /hpf (<5) Urine Bacteria Mod /hpf (None Seen) H Urine Mucus Few (None Seen) Urine Glucose Normal mg/dL (Normal) Labs and/or images reviewed: Labs reviewed by me Assessment/Plan Assessment/Plan spinal sprain muscle spasm intractable back pain myelopathy w/o? UTI Continue baclofen Continue with ibuprofen and Tylenol,norco PT spine eval decadron IV UA review show evidence of UTI Continue rocephin 1gm IV qday. Will follow up with culture. This medical document was created using an electronic medical record system with [employer] direct computerized dictation system. Although this document has been carefully reviewed, there may still be some phonetic and typographical errors. These areas are purely typographical due to imperfections of the software programs, and do not reflect any compromise in the patient's medical care. Plan discussed with: Patient Date of Service: Dec 14, 2024 Billing Provider: LIZA CABALLERO MD Common Visit Codes: [id number] INP/OBS CARE(HIGH) LIZA CABALLERO MD Dec 14, 2024 23:02
[2024-12-15] VITALS (8 sets, daily range): BP systolic 115–125; BP diastolic 70–81; PULSE 69–91; RESP 16–18; TEMP 97.8–98.6; O2SAT 97–99
[2024-12-15 06:49] LABS: Chloride 105 mmol/L (98-107); Potassium 4.9 mmol/L (3.5-5.1); Sodium 138 mmol/L (136-145)
[2024-12-15 06:50] LABS: Anion Gap 10 (5-15); Carbon Dioxide 23 mmol/L (20-31)
[2024-12-15 06:55] LABS: BUN/Creatinine Ratio 18.8 (10.0-20.0); Blood Urea Nitrogen 16 mg/dL (9-23); Glucose 79 mg/dL (74-106)
[2024-12-15 07:04] LABS: Calcium 8.6 mg/dL (8.7-10.4)
[2024-12-15 09:17] LABS: Hematocrit 40.4 % (36.0-46.0); Hemoglobin 13.4 g/dL (12.2-16.2); Mean Corpuscular Hemoglobin 29.2 pg (28.0-32.0); Mean Corpuscular Volume 88.3 fL (80.0-100.0); Nucleated Red Blood Cells % 0.0 %
[2024-12-15] MEDS ORDERED: CEPH250C PO (14:47)
--- NOTE | 2024-12-15 14:48 | DVHDS2 ---
Discharge Summary Date of Admission Dec 09, 2024 at 23:21 Date of Discharge: Dec 15, 2024 Labs/Diagnostic Data: Laboratory Results Test 12/15/24 08:56 12/15/24 04:42 12/14/24 14:55 12/13/24 15:28 White Blood Count 8.5 10^3/uL (4.4-10.8) Red Blood Count 4.58 10^6/uL (4.0-5.20) Hemoglobin 13.4 g/dL (12.2-16.2) Hematocrit 40.4 % (36.0-46.0) Mean Corpuscular Volume 88.3 fL (80.0-100.0) Mean Corpuscular Hemoglobin 29.2 pg (28.0-32.0) Mean Corpuscular Hemoglobin Concent 33.1 g/dL (32.0-36.0) Red Cell Distribution Width 14.2 % (11.8-14.3) Platelet Count 263 10^3/uL (140-450) Mean Platelet Volume 7.4 fL (6.9-10.8) Neutrophils (%) (Auto) 52.5 % (37.0-80.0) Lymphocytes (%) (Auto) 38.2 % (10.0-50.0) Monocytes (%) (Auto) 7.7 % (0.0-12.0) Eosinophils (%) (Auto) 1.4 % (0.0-7.0) Basophils (%) (Auto) 0.2 % (0.0-2.0) Neutrophils # (Auto) 4.5 10 ^3/uL (1.6-8.6) Lymphocytes # (Auto) 3.3 10 ^3/uL (0.4-5.4) Monocytes # (Auto) 0.7 10 ^3/uL (0-1.3) Eosinophils # (Auto) 0.1 10 ^3/uL (0-0.8) Basophils # (Auto) 0 10 ^3/uL (0-0.2) Nucleated Red Blood Cells 0.0 % Sodium Level 138 mmol/L (136-145) Potassium Level 4.9 mmol/L (3.5-5.1) Chloride Level 105 mmol/L (98-107) Carbon Dioxide Level 23 mmol/L (20-31) Anion Gap 10 (5-15) Blood Urea Nitrogen 16 mg/dL (9-23) Creatinine 0.85 mg/dL (0.550-1.02) Glomerular Filtration Rate Calc 92 mL/min (>90) BUN/Creatinine Ratio 18.8 (10.0-20.0) Serum Glucose 79 mg/dL (74-106) Calcium Level 8.6 mg/dL (8.7-10.4) Total Bilirubin 0.2 mg/dL (0.2-1.0) Aspartate Amino Transferase (AST) 30 U/L (13-40) Alanine Aminotransferase (ALT) 56 U/L (7-40) Alkaline Phosphatase 100 U/L (46-116) Total Protein 6.9 g/dL (5.7-8.2) Albumin 3.8 g/dL (3.2-4.8) Urine Color Light-orange (Yellow) Urine Clarity Turbid (Clear) Urine pH 6.0 (5.0-9.0) Urine Specific [place] 1.018 (1.001-1.035) Urine Protein Trace (Negative) Urine Ketones Negative (Negative) Urine Blood 3+ /uL (Negative) Urine Nitrite Negative (Negative) Urine Bilirubin Negative (Negative) Urine Urobilinogen Normal mg/dL (Negative) Urine Leukocyte Esterase 3+ /uL (Negative) Urine RBC 214 /hpf (0 - 4) Urine Microscopic WBC 458 /HPF (0-5) Urine Squamous Epithelial Cells Few /hpf (<5) Urine Bacteria Mod /hpf (None Seen) Urine Mucus Few (None Seen) Urine Glucose Normal mg/dL (Normal) Other Laboratory Tests 12/15/24 08:56 12/15/24 04:42 Condition at Discharge: Good Final Diagnosis/Problems List L1 supraspinatus sprain UTI Discharge Disposition: Home Discharge Instruct/Medications Diet: Regular Activity: Light activity Medications: flexeril tylenol norco motrin keflex Scheduled Acetaminophen (Acetaminophen), 650 MG PO Q8HR Cephalexin (Keflex Capsule), 1 CAP PO QID Cyclobenzaprine Hcl (Cyclobenzaprine Hcl), 10 MG PO TID Famotidine (Pepcid AC), 20 MG PO DAILY Scheduled PRN Hydrocodone-Acetaminophen (Hydrocodone Bitartrate/AC 5-325 mg), 1 TAB PO Q8HP PRN Ibuprofen Micronized (Motrin Tablet), 600 MG PO TID PRN Discharge Statement: "Patient was advised to return to the ER or call 911 if any headaches, dizziness, shortness of breath, chest pain, abdominal pain, bleeding, fevers, or worsening of medical condition. Patient was counseled about treatment plan, medications, possible side effects, patientverbalized understanding. All questions were answered to the best of my ability. This discharge took greater then 30 minutes in planning, reviewing documentation, counseling the patient, and discussing with other team members." ASSESSMENT ASSESSMENT Assessment L1 supraspinatus sprain UTI Date of Service: Dec 15, 2024 Billing Provider: BRIAN SHAHID MD Common Visit Codes: 65812-[facility]K/OBS DISCH DAY >30min BRIAN SHAHID MD Dec 15, 2024 14:48
[2024-12-16 00:54] VITALS: BP 119/83; PULSE 69; RESP 18; TEMP 98.6; O2SAT 97
[2024-12-16 05:00] VITALS: BP 118/78; PULSE 77; RESP 18; TEMP 98.4; O2SAT 99
[2024-12-16 06:54] LABS: Hematocrit 37.9 % (36.0-46.0); Hemoglobin 12.4 g/dL (12.2-16.2); Mean Corpuscular Hemoglobin 28.8 pg (28.0-32.0); Mean Corpuscular Volume 87.7 fL (80.0-100.0); Nucleated Red Blood Cells % 0.2 %
[2024-12-16 06:57] LABS: Chloride 105 mmol/L (98-107); Potassium 4.4 mmol/L (3.5-5.1); Sodium 139 mmol/L (136-145)
[2024-12-16 06:58] LABS: Anion Gap 8 (5-15); Carbon Dioxide 26 mmol/L (20-31)
[2024-12-16 07:03] LABS: BUN/Creatinine Ratio 16.9 (10.0-20.0); Blood Urea Nitrogen 13 mg/dL (9-23); Glucose 82 mg/dL (74-106)
[2024-12-16 07:04] LABS: Calcium 8.5 mg/dL (8.7-10.4)
[2024-12-16 08:00] VITALS: PULSE 73; RESP 20; O2SAT 98
[2024-12-16 09:00] VITALS: BP 121/84; PULSE 73; RESP 20; TEMP 97.1; O2SAT 98
[2024-12-16 13:00] VITALS: BP 138/82; PULSE 69; RESP 18; TEMP 98; O2SAT 98
--- NOTE | 2024-12-16 13:55 | DVHPN2 ---
Assessment/Plan Assessment/Plan progress note 34 F with obesity and recent admitted for intractable back pain s/p mech fall. seen today. pending DC, waiting for DME physical exam aox4 obese clear breath sounds s1 s2 rrr abdomen no LE edema msk neuro exam b/l foot, normal plantar and dorsiflexion, normal sensation to touch b/l knee flexion and extension normal b/l hip limited ROM to pain, normal sensation to touch, mild tingling on lateral L thigh no paraspinal tenderness no CVA tenderness unable to perform SLR NORRIS limited to pain LOKESH with normal rectal tone labs ekg imaging reviewed 1. Mild disc bulge at L1-L2 and minimal disc bulge at L5-S1 without significant spinal canal stenosis. Otherwise, no significant spinal canal or neural foraminal stenosis in the lumbar spine. 2. Mild edema posterior to the L1 spinous process, possible sprain of the supraspinous ligament. Correlate with clinical findings. 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
[2024-12-16 14:04] VITALS: TEMP 36.2
== END 2024-12-16 15:25 | disposition home or self-care (01) | DRG 347 ==
LOC: EDBD 18:04 → EEVIPCON 18:04 → ER 18:04 → OVERFLOW 23:21 → WEST WING 12-10 04:42
PROVIDERS: ADMIT Student in an Organized Health Care Education/Training Program; ATTEND Student in an Organized Health Care Education/Training Program
DX: S33.5XXA Sprain of ligaments of lumbar spine, initial encounter (principal); F32.A Depression, unspecified; F41.9 Anxiety disorder, unspecified; F43.10 Post-traumatic stress disorder, unspecified; N39.0 Urinary tract infection, site not specified; M62.830 Muscle spasm of back; W18.39XA Other fall on same level, initial encounter; Y93.89 Activity, other specified; Y92.89 Other specified places as the place of occurrence of the external cause; Y99.8 Other external cause status; S39.012A Strain of muscle, fascia and tendon of lower back, initial encounter
CPT/HCPCS: 36415; 72131; 72148; 73502; 80048; 80053; 81001; 85025; 96374; 96375; 97110; 97116; 97163; 97530; G0378; J0131; J1100; J1885; J2405